=== PATIENT | male | born 1965 | race Caucasian/White ===

== ENCOUNTER 2018-08-19 11:27 | Emergency (ER) | payer MEDICARE, OTHER ==
[~2018-08-19] VITALS: Ht 188 cm; Wt 108.9 kg
[~2018-08-19 11:27] MED LIST: ASP325T PO; ASP325TEC PO; ASPI-983 PO; ATOR80TA PO; ATOR80TA2 PO; ATOR80TA76 PO; ENAL2.5T PO; ENLP2.5T PO; IBUP-1773 PO; METO-333 PO; MULT-974 PO; OMEP20CA12 PO; OMEP20TA7 PO; OMG1KC PO; PNT40TEC PO; PRAS10TA6 PO; PROM25TA14 PO; RANEXA 500MG PO; RANO10003 PO; [UNRECOGNIZED DRUG - CODE] PO
[2018-08-19] MEDS ORDERED: KETOROLAC 30 MG/ML VIAL IM ONE (11:45)
[2018-08-19] MEDS ORDERED: TRAM-42 PO (12:16)
[2018-08-19] MEDS ORDERED: PRD20T PO ×2 (12:16→12:22)
--- NOTE | 2018-08-19 12:17 | ED Back Pain ---
General Chief Complaint: Lower Extremity Stated Complaint: RIGHT LEG SWELLING Nursing Triage Note: TO ED C/O PAIN IN R LEG FOR 10DAYS AFTER WAKING UP IN CHAIR C/O L HURTING FROM R HIP TO FOOT. WAS SEEN AT [facility] WALK IN URGENT CARE AND GIVEN FLEXARIL. Nursing Sepsis Screen: No Definite Risk Source of Information: Patient Exam Limitations: No Limitations History of Present Illness Date Seen by Provider: Aug 19, 2018 Time Seen by Provider: 11:33 Initial Comments This 53-year-old gentleman presents to emergency room with complaints of pain in his right lower back radiating into the buttocks and all the way down to his foot. He has a history of lower back problems and has seen Dr. Ordoñez ( neurosurgeon) in the past. He has been taking [id number] medications and Flexeril without sufficient relief. He does not complain of any bowel or bladder dysfunction. He does not have significant weakness in the legs. He is able to ambulate into the ER on his own power. He denies any injury. He states symptoms started after he was sitting in a chair in no way that he was putting pressure on his ankle. Patient secondarily complains of cloudy urine. Allergies and Home Medications Allergies Coded Allergies: propoxyphene (Verified Allergy, Severe, NAUSEA, 03/31/14) Pt has nausea and disorientation when taking Home Medications Aspirin 81 Mg Tablet.dr, 81 MG PO DAILY, (Reported) Atorvastatin Calcium 80 Mg Tablet, 80 MG PO HS, (Reported) Enalapril Maleate 2.5 Mg Tablet, 2.5 MG PO DAILY, (Reported) Glu/Edgar-MSM#1/D3/C/Mn/Roger/Bor 1 Each Tablet, 1 TAB PO DAILY, (Reported) Metoprolol Tartrate 25 Mg Tablet, 12.5 MG PO BID, (Reported) Multivitamin 1 Each Tablet, 1 TAB PO DAILY, (Reported) [place] 3 Polyunsat Fatty Acids 1,000 Mg Cap, 1,000 MG PO DAILY, (Reported) Omeprazole 20 Mg Capsule.dr, 20 MG PO DAILY, (Reported) Prasugrel HCl 10 Mg Tablet, 10 MG PO DAILY, (Reported) Prednisone 20 Mg Tab, 1 TAB PO DAILY Prescribed by: PAUL TERRY on 08/19/18 1216 Promethazine HCl 25 Mg Tablet, 25 MG PO Q4-6 PRN for NAUSEA, (Reported) Ranolazine 1,000 Mg Tab.er.12h, 1,000 MG PO BID, (Reported) Tramadol HCl 50 Mg Tablet, 50 MG PO Q6H PRN for PAIN-MODERATE TO SEVERE Prescribed by: PAUL TERRY on 08/19/18 1216 Patient Home Medication List Home Medication List Reviewed: Yes Review of Systems Constitutional: no symptoms reported EENTM: no symptoms reported Respiratory: no symptoms reported Cardiovascular: no symptoms reported Gastrointestinal: no symptoms reported Genitourinary: no symptoms reported Musculoskeletal: see HPI Skin: no symptoms reported Psychiatric/Neurological: See HPI Past Ytvokea-Wkduqe-Wnnikw Hx Past Med/Social Hx: Reviewed and Corrections made Patient Social History Alcohol Use: Occasionally Uses Alcohol Beverage of Choice: Rum Recreational Drug Use: No Smoking Status: Never a Smoker Recent Foreign Travel: No Contact w/Someone Who Travel: No Recent Infectious Disease Expo: No Recent Hopitalizations: No Immunizations Up To Date Tetanus Booster (TDap): Less than 5yrs PED Vaccines UTD: Yes Seasonal Allergies Seasonal Allergies: No Past Medical History Surgeries: Yes Coronary Stent Respiratory: Yes Pneumonia, COPD Cardiac: Yes (CHF) Coronary Artery Disease, Heart Attack Neurological: No Reproductive Disorders: No Sexually Transmitted Disease: No HIV/AIDS: No Gastrointestinal: Yes Chronic Constipation Musculoskeletal: Yes (left meniscus tear, cervical spine disease) Degenerate Disk Disease, Chronic Back Pain Endocrine: No HEENT: No Cancer: No Psychosocial: Yes Sleep Difficulties, Anxiety, Depression Integumentary: No Blood Disorders: No Adverse Reaction/Blood Tranf: No Family Medical History Reviewed Nursing Family Hx Cancer Physical Exam Vital Signs Vital Signs - First Documented 08/19/18 11:31 Temp 97.3 Pulse 84 Resp 18 B/P (MAP) 134/84 (101) Pulse Ox 100 O2 Delivery Room Air Capillary Refill : Less Than 3 Seconds Height, Weight, BMI Height: 6'2.00" Weight: 240lbs. 9.0oz. 108.126618cu; BMI Method:Stated General Appearance: WD/WN, Mild Distress HEENT: PERRL/EOMI, Normal ENT Inspection Neck: Normal Inspection Respiratory: Normal Breath Sounds, No Respiratory Distress Back: Vertebral Tenderness, Other (tenderness in the musculature to the right of the lower lumbar spine) Extremity: Other (tenderness in the muscles of the right buttock. No edema or pain in the foot or ankle. Normal pedal pulses. Normal sensation, muscle and tendon function in the lower leg and foot. Tenderness to light touch in the lateral knee area per patient report.) Neurologic/Psychiatric: Alert, Oriented x3, No Motor/Sensory Deficits, Normal Mood/Affect, pulling unit floorhand II-XII Norm as Tested Skin: Normal Color, Warm/Dry Progress/Results/Core Measures Results/Orders My Orders Orders - PAUL CHENG MD Ketorolac Injection (Toradol Injection) (08/19/18 11:45) Medications Given in ED Current Medications Medications Dose Ordered Sig/Darrel Route Start Time Stop Time Status Last Admin Dose Admin Ketorolac Tromethamine 30 mg ONCE ONCE IM 08/19/18 11:45 08/19/18 11:46 DC 08/19/18 11:50 30 MG Vital Signs/I&O 08/19/18 11:31 Temp 97.3 Pulse 84 Resp 18 B/P (MAP) 134/84 (101) Pulse Ox 100 O2 Delivery Room Air Blood Pressure Mean: 101 Progress Progress Note : Progress Note Patient received a Toradol injection with some improvement. See discharge instructions. Patient had just urinated prior to being roomed. He cannot produce a urine specimen for us to evaluate. Follow-up in the outpatient setting for evaluation of his urine was recommended. Departure Impression Primary Impression: Pain of back and right lower extremity Additional Impression: Cloudy urine Disposition: 01 HOME, SELF-CARE Condition: Improved Departure-Patient Inst. Decision time for Depature: 12:13 Referrals: DELMY LENNON MD (PCP/Family) Primary Care Physician Patient Instructions: Low Back Pain (DC), Radiculopathy Add. Discharge Instructions: Follow-up with your primary care provider and/or your neurosurgeon as soon as possible. For pain you may take ibuprofen up to 600 mg every 6 hours as needed. Ibuprofen should not be used for long-term treatment of pain. You may add Tylenol (acetaminophen) up to 1000 mg every 6 hours as needed for additional pain relief. For more severe pain that is not controlled by [id number] medications, add Ultram (tramadol) as prescribed. Drink plenty of water. Gentle heat to lower back may help alleviate muscle tension. You may continue using Flexeril as previously prescribed. Return to care if you have worsening of symptoms, especially if you have bowel or bladder dysfunction or weakness of the lower extremities. Follow-up with your primary care provider regarding workup for your cloudy urine. All discharge instructions reviewed with patient and/or family. Voiced understanding. Scripts Prednisone (Prednisone) 20 Mg Tab 1 TAB PO DAILY, #4 TAB Prov: PAUL CHENG MD 08/19/18 Tramadol HCl (Ultram) 50 Mg Tablet 50 MG PO Q6H PRN for PAIN-MODERATE TO SEVERE, #20 TAB Prov: PAUL CHENG MD 08/19/18 Copy Copies To 1: DELMY LENNON MD, JOSHUA T MD Aug 19, 2018 12:17
[2018-08-19 12:27] VITALS: BP 134/84
== END 2018-08-19 12:27 | disposition home or self-care (01) ==
LOC: EDUNIT# 11:27 → ER 11:29
DX: M54.16 Radiculopathy, lumbar region (principal); M79.604 Pain in right leg; R82.90 Unspecified abnormal findings in urine; J44.9 Chronic obstructive pulmonary disease, unspecified; I50.9 Heart failure, unspecified; I25.10 Atherosclerotic heart disease of native coronary artery without angina pectoris; F41.9 Anxiety disorder, unspecified; F32.9 Major depressive disorder, single episode, unspecified; Z87.19 Personal history of other diseases of the digestive system; Z88.8 Allergy status to other drugs, medicaments and biological substances; Z79.82 Long term (current) use of aspirin; Z79.52 Long term (current) use of systemic steroids; Z95.5 Presence of coronary angioplasty implant and graft; Z87.01 Personal history of pneumonia (recurrent)
CPT/HCPCS: 96372; 99284

== ENCOUNTER 2018-08-21 20:29 | Emergency (ER) | payer MEDICARE ==
[~2018-08-21] VITALS: Ht 170.2 cm; Wt 90.7 kg
[~2018-08-21 20:29] MED LIST changes: +PRD20T PO; +TRAM-42 PO
[2018-08-21] MEDS ORDERED: morphine INJ 10 MG/ML 1ML (SYR OR VIAL) IVP STA (20:36)
[2018-08-21] MEDS ORDERED: KETOROLAC 30 MG/ML VIAL IVP STA (20:36)
[2018-08-21 20:47] LABS: BILIRUBIN,URINE NEGATIVE (NEGATIVE); CLARITY,URINE CLEAR; COLOR,URINE YELLOW; GLUCOSE, URINE (UA) NEGATIVE (NEGATIVE); KETONES,URINE NEGATIVE (NEGATIVE); LEUKOCYTE ESTERASE ,URINE NEGATIVE (NEGATIVE); NITRITE,URINE NEGATIVE (NEGATIVE); PH,URINE 7 (5-9); PROTEIN,URINE NEGATIVE (NEGATIVE); UROBILINOGEN,URINE NORMAL (NORMAL)
--- NOTE | 2018-08-21 20:57 | ED Back Pain ---
General Chief Complaint: Back Problems Stated Complaint: BACK PAIN Source of Information: Patient, EMS Exam Limitations: No Limitations History of Present Illness Date Seen by Provider: Aug 21, 2018 Time Seen by Provider: 20:31 Initial Comments Here with acute worsening of his back pain to the right side today. Seen a few days ago for the same and given a shot of something which helped. He was doing better this morning and was up standing and working a little bit when the pain started getting worse. It became too intense to even stand due to radiating pain from the right low back down over the right hip to the right lower leg. Denies numbness or tingling. Hurts to stand or move. He is able to roll. Denies bowel or bladder incontinence. Timing/Duration: 3-4 Days Severity: Moderate Pain/Injury Location: Back Radiation: Buttocks, Lower Legs, Upper Legs Method of Injury: Unknown Modifying Factors: Improves With Immobilization; Worse With Movement; Improves With Pain Medication Associated Symptoms: muscle spasms; No fever, No weakness, No numbness in legs/ feet, No tingling in legs/feet, No sensory/motor loss; lower back pain; No loss of bladder control, No loss of bowel control Allergies and Home Medications Allergies Coded Allergies: propoxyphene (Verified Allergy, Severe, NAUSEA, 03/31/14) Pt has nausea and disorientation when taking Home Medications Aspirin 81 Mg Tablet.dr, 81 MG PO DAILY, (Reported) Atorvastatin Calcium 80 Mg Tablet, 80 MG PO HS, (Reported) Enalapril Maleate 2.5 Mg Tablet, 2.5 MG PO DAILY, (Reported) Glu/Edgar-MSM#1/D3/C/Mn/Roger/Bor 1 Each Tablet, 1 TAB PO DAILY, (Reported) Metoprolol Tartrate 25 Mg Tablet, 12.5 MG PO BID, (Reported) Multivitamin 1 Each Tablet, 1 TAB PO DAILY, (Reported) [place] 3 Polyunsat Fatty Acids 1,000 Mg Cap, 1,000 MG PO DAILY, (Reported) Omeprazole 20 Mg Capsule.dr, 20 MG PO DAILY, (Reported) Prasugrel HCl 10 Mg Tablet, 10 MG PO DAILY, (Reported) Prednisone 20 Mg Tab, 1 TAB PO DAILY Prescribed by: PAUL TERRY on 08/19/18 1222 Promethazine HCl 25 Mg Tablet, 25 MG PO Q4-6 PRN for NAUSEA, (Reported) Ranolazine 1,000 Mg Tab.er.12h, 1,000 MG PO BID, (Reported) Tramadol HCl 50 Mg Tablet, 50 MG PO Q6H PRN for PAIN-MODERATE TO SEVERE Prescribed by: PAUL TERRY on 08/19/18 1216 Patient Home Medication List Home Medication List Reviewed: Yes Review of Systems Constitutional: see HPI; No chills, No fever Respiratory: no symptoms reported Cardiovascular: no symptoms reported Gastrointestinal: no symptoms reported Genitourinary: no symptoms reported Musculoskeletal: see HPI, back pain Psychiatric/Neurological: See HPI Past Dfoktzy-Brveia-Rzdmar Hx Past Med/Social Hx: Reviewed Nursing Past Med/Soc Hx Patient Social History Alcohol Use: Occasionally Uses Alcohol Beverage of Choice: Rum Recreational Drug Use: No Smoking Status: Never a Smoker Recent Foreign Travel: No Contact w/Someone Who Travel: No Recent Hopitalizations: No Immunizations Up To Date Tetanus Booster (TDap): Less than 5yrs PED Vaccines UTD: Yes Seasonal Allergies Seasonal Allergies: No Past Medical History Surgeries: Yes Coronary Stent Respiratory: Yes Pneumonia, COPD Cardiac: Yes (CHF) Coronary Artery Disease, Heart Attack Neurological: No Reproductive Disorders: No Sexually Transmitted Disease: No HIV/AIDS: No Gastrointestinal: Yes Chronic Constipation Musculoskeletal: Yes (left meniscus tear, cervical spine disease) Degenerate Disk Disease, Chronic Back Pain Endocrine: No HEENT: No Cancer: No Psychosocial: Yes Sleep Difficulties, Anxiety, Depression Integumentary: No Blood Disorders: No Adverse Reaction/Blood Tranf: No Family Medical History Reviewed Nursing Family Hx Cancer Physical Exam Vital Signs Vital Signs - First Documented 08/21/18 21:46 Temp 98.2 Pulse 69 Resp 18 B/P (MAP) 100/69 (79) Pulse Ox 95 Capillary Refill : Height, Weight, BMI Height: 6'2.00" Weight: 240lbs. 9.0oz. 108.734056rb; BMI Method:Stated General Appearance: WD/WN, Mild Distress HEENT: PERRL/EOMI, Pharynx Normal Neck: Normal Inspection, Non Tender, Supple Cardiovascular: Regular Rate, Rhythm, No Murmur Respiratory: Lungs Clear, Normal Breath Sounds Back: Decreased Range of Motion, Muscle Spasm; No Vertebral Tenderness (right low back); Other (tender over the right upper buttock and down the right leg) Extremity: No Pedal Edema, Pelvis Stable; No Swelling Neurologic/Psychiatric: Alert, Oriented x3, No Motor/Sensory Deficits Skin: Normal Color, Warm/Dry Progress/Results/Core Measures Results/Orders Lab Results Laboratory Tests Test 08/21/18 20:39 08/21/18 21:23 Range/Units Urine Color YELLOW Urine Clarity CLEAR Urine pH 7 5-9 Urine Specific [place] 1.010 L 1.016-1.022 Urine Protein NEGATIVE NEGATIVE Urine Glucose (UA) NEGATIVE NEGATIVE Urine Ketones NEGATIVE NEGATIVE Urine Nitrite NEGATIVE NEGATIVE Urine Bilirubin NEGATIVE NEGATIVE Urine Urobilinogen NORMAL NORMAL MG/DL Urine Leukocyte Esterase NEGATIVE NEGATIVE Urine RBC (Auto) NEGATIVE NEGATIVE Urine RBC NONE /HPF Urine WBC NONE /HPF Urine Squamous Epithelial Cells RARE /HPF Urine Crystals NONE /LPF Urine Bacteria NONE /HPF Urine Casts NONE /LPF Urine Mucus NEGATIVE /LPF Urine Culture Indicated NO White Blood Count 10.9 4.3-11.0 10^3/uL Red Blood Count 4.67 4.35-5.85 10^6/uL Hemoglobin 14.8 13.3-17.7 G/DL Hematocrit 41 40-54 % Mean Corpuscular Volume 88 80-99 FL Mean Corpuscular Hemoglobin 32 25-34 PG Mean Corpuscular Hemoglobin Concent 36 32-36 G/DL Red Cell Distribution Width 13.3 10.0-14.5 % Platelet Count 217 130-400 10^3/uL Mean Platelet Volume 10.2 7.4-10.4 FL Neutrophils (%) (Auto) 74 42-75 % Lymphocytes (%) (Auto) 18 12-44 % Monocytes (%) (Auto) 7 0-12 % Eosinophils (%) (Auto) 1 0-10 % Basophils (%) (Auto) 0 0-10 % Neutrophils # (Auto) 8.0 H 1.8-7.8 X 10^3 Lymphocytes # (Auto) 2.0 1.0-4.0 X 10^3 Monocytes # (Auto) 0.8 0.0-1.0 X 10^3 Eosinophils # (Auto) 0.1 0.0-0.3 10^3/uL Basophils # (Auto) 0.0 0.0-0.1 10^3/uL Sodium Level 138 135-145 MMOL/L Potassium Level 4.0 3.6-5.0 MMOL/L Chloride Level 107 98-107 MMOL/L Carbon Dioxide Level 19 L 21-32 MMOL/L Anion Gap 12 5-14 MMOL/L Blood Urea Nitrogen 14 7-18 MG/DL Creatinine 1.03 0.60-1.30 MG/DL Estimat Glomerular Filtration Rate > 60 BUN/Creatinine Ratio 14 Glucose Level 107 H 70-105 MG/DL Calcium Level 9.5 8.5-10.1 MG/DL Corrected Calcium 9.3 8.5-10.1 MG/DL Total Bilirubin 1.5 H 0.1-1.0 MG/DL Aspartate Amino Transf (AST/SGOT) 24 5-34 U/L Alanine Aminotransferase (ALT/SGPT) 39 0-55 U/L Alkaline Phosphatase 60 40-136 U/L C-Reactive Protein High Sensitivity 0.04 0.00-0.50 MG/DL Total Protein 6.9 6.4-8.2 GM/DL Albumin 4.3 3.2-4.5 GM/DL My Orders Orders - ELDA ALCOCER MD Ct Lumbar Spine Wo (08/21/18 20:36) Cbc With Automated Diff (08/21/18 20:36) Comprehensive Metabolic Panel (08/21/18 20:36) Hs C Reactive Protein (08/21/18 20:36) Ua Culture If Indicated (08/21/18 20:36) Ketorolac Injection (Toradol Injection) (08/21/18 20:36) Morphine Injection (Morphine Injection (08/21/18 20:36) Saline Lock/Iv-Start (08/21/18 20:36) Prednisone Tablet (Deltasone Tablet) (08/21/18 22:15) Rx-Hydrocodone/Apap 5-325 Mg (Rx-Vicodin (08/21/18 22:15) Vital Signs/I&O 08/21/18 21:46 Temp 98.2 Pulse 69 Resp 18 B/P (MAP) 100/69 (79) Pulse Ox 95 Progress Progress Note : Progress Note Seen and evaluated. We will check basic labs as well as CT of the lumbar spine. Toradol 30 mg IV and morphine 8 mg IV ordered. Monitor patient. Pain improved. 2210: Prednisone 60 mg by mouth. We will continue his outpatient has burst. Does have advancing degenerative disease and will need to follow-up with orthopedics. He does have appointment with Dr. Hawley tomorrow. I'll send a copy of the chart to the clinic. Discharged home with return precautions. Patient verbalize understanding instructions and agreement with plan. Diagnostic Imaging Diagonstic Imaging: CT Plain Films/CT/US/NM/MRI: other Comments NAME: ELDA HERNANDES [facility] REC#: [id number] PT STATUS: REG ER : 1965 PHYSICIAN: ELDA ALCOCER MD ADMIT DATE: 08/21/18/ER Signed Date of Exam: 08/21/18 CT LUMBAR SPINE WO PROCEDURE: CT lumbar spine without contrast. TECHNIQUE: Multiple contiguous axial images were obtained through the lumbar spine without the use of intravenous contrast. Sagittal and coronal reformations were then performed. INDICATION: Severe back pain for 7 days. Right leg numbness. There is normal height and alignment of the lumbar vertebral bodies. The L1-2 level shows no significant abnormality. At L2-3, there is disc space narrowing and bulging of the disc with spondylosis causing right lateral recess and foraminal encroachment. At L3-4, there is disc space narrowing and diffuse bulging of the disc with degenerated facets resulting in a mild central canal stenosis. At L4-5, there is disc space narrowing with bulging of the disc and degenerated facets resulting in a moderately severe spinal canal stenosis. At L5-S1, there is bulging of the disc with degenerated facets resulting in a moderate spinal canal stenosis. There is no mass evident. There is no acute bony abnormality. IMPRESSION: There is diffuse degenerative disc and facet disease resulting in multilevel stenosis. This has shown progression since an MRI from 11/18/2015. No acute abnormality is evident. Dictated by: Dictated on workstation # [id number] Dict: 08/21/182121 Trans: 08/21/182130 Interpreted by: CARLOS VARGHESE MD Electronically signed by: CARLOS VARGHESE MD 08/21/182130 Departure Impression Primary Impression: Lumbar radiculopathy Disposition: HOME, SELF-CARE Condition: Improved Departure-Patient Inst. Decision time for Depature: 22:17 Referrals: SHAILESH SAHA DAVID F MD (PCP/Family) Primary Care Physician VALARIE ELLISON MD Patient Instructions: Low Back Pain (DC), Radiculopathy (DC) Add. Discharge Instructions: All discharge instructions reviewed with patient and/or family. Voiced understanding. Follow up with your doctor tomorrow. You should follow-up with orthopedist of your choice for further evaluation of your back. Take medications as directed. Return for worse pain, weakness, numbness between her legs, difficulty with walking or going to the bathroom or other concerns as needed. Scripts Prednisone (Prednisone) 20 Mg Tab 40 MG PO DAILY, #12 TAB 0 Refills Prov: ELDA ALCOCER MD 08/21/18 Hydrocodone Bit/Acetaminophen (Hydrocodone/Acetaminophen 5/325mg Tablet) 1 Tab Tab 1-2 EACH PO Q6H PRN for PAIN-MODERATE MDD 10, #15 TAB 0 Refills Prov: ELDA ALCOCER MD 08/21/18 Copy Copies To 1: DELMY LENNON MD, TIMOTHY D MD Aug 21, 2018 20:56
[2018-08-21 20:58] LABS: SQUAMOUS EPITHELIAL CELL,UR RARE /HPF
--- NOTE | 2018-08-21 21:29 | Diagnostic Imaging Report ---
PROCEDURE: CT lumbar spine without contrast. TECHNIQUE: Multiple contiguous axial images were obtained through the lumbar spine without the use of intravenous contrast. Sagittal and coronal reformations were then performed. INDICATION: Severe back pain for 7 days. Right leg numbness. There is normal height and alignment of the lumbar vertebral bodies. The L1-2 level shows no significant abnormality. At L2-3, there is disc space narrowing and bulging of the disc with spondylosis causing right lateral recess and foraminal encroachment. At L3-4, there is disc space narrowing and diffuse bulging of the disc with degenerated facets resulting in a mild central canal stenosis. At L4-5, there is disc space narrowing with bulging of the disc and degenerated facets resulting in a moderately severe spinal canal stenosis. At L5-S1, there is bulging of the disc with degenerated facets resulting in a moderate spinal canal stenosis. There is no mass evident. There is no acute bony abnormality. IMPRESSION: There is diffuse degenerative disc and facet disease resulting in multilevel stenosis. This has shown progression since an MRI from 11/18/2015. No acute abnormality is evident. Dictated by: Dictated on workstation # [id number]
[2018-08-21 21:31] LABS: BASOPHILS % (AUTO) 0 % (0-10); EOSINOPHILS # (AUTO) 0.1 10^3/uL (0.0-0.3); EOSINOPHILS % (AUTO) 1 % (0-10); HEMATOCRIT 41 % (40-54); HEMOGLOBIN 14.8 G/DL (13.3-17.7); LYMPHOCYTES % (AUTO) 18 % (12-44); MEAN CORPUSCULAR HEMOGLOBIN 32 PG (25-34); MEAN CORPUSCULAR HGB CONC 36 G/DL (32-36); MEAN CORPUSCULAR VOLUME 88 FL (80-99); MEAN PLATELET VOLUME 10.2 FL (7.4-10.4); MONOCYTES # (AUTO) 0.8 X 10^3 (0.0-1.0); MONOCYTES % (AUTO) 7 % (0-12); NEUTROPHILS % (AUTO) 74 % (42-75); PLATELET COUNT 217 10^3/uL (130-400); RED BLOOD COUNT 4.67 10^6/uL (4.35-5.85); RED CELL DISTRIBUTION WIDTH 13.3 % (10.0-14.5); WHITE BLOOD COUNT 10.9 10^3/uL (4.3-11.0)
[2018-08-21 21:47] LABS: ALANINE AMINOTRANSFERASE 39 U/L (0-55); ALBUMIN 4.3 GM/DL (3.2-4.5); ALKALINE PHOSPHATASE 60 U/L (40-136); BILIRUBIN,TOTAL 1.5 MG/DL (0.1-1.0); BUN/CREATININE RATIO 14; CALCIUM 9.5 MG/DL (8.5-10.1); CARBON DIOXIDE 19 MMOL/L (21-32); CHLORIDE 107 MMOL/L (98-107); CREATININE SERUM 1.03 MG/DL (0.60-1.30); GFR ESTIMATED > 60; GLUCOSE 107 MG/DL (70-105); SODIUM 138 MMOL/L (135-145); TOTAL PROTEIN 6.9 GM/DL (6.4-8.2)
[2018-08-21] MEDS ORDERED: predniSONE 20 MG TAB PO ONE (22:15)
[2018-08-21] MEDS ORDERED: RX-HYDROCODONE/APAP 5/325 MG #4 TAB PK PO PRN (22:15)
[2018-08-21] MEDS ORDERED: ACHD5005 PO (22:18)
[2018-08-21] MEDS ORDERED: PRD20T PO (22:18)
[2018-08-21 22:34] VITALS: BP 111/66
== END 2018-08-21 22:34 | disposition home or self-care (01) ==
LOC: EDUNIT# 20:29 → ER 20:31
DX: M54.16 Radiculopathy, lumbar region (principal); J44.9 Chronic obstructive pulmonary disease, unspecified; I25.10 Atherosclerotic heart disease of native coronary artery without angina pectoris; I25.2 Old myocardial infarction; I50.9 Heart failure, unspecified; F41.9 Anxiety disorder, unspecified; F32.9 Major depressive disorder, single episode, unspecified; Z88.8 Allergy status to other drugs, medicaments and biological substances; Z79.82 Long term (current) use of aspirin; Z87.19 Personal history of other diseases of the digestive system; Z79.52 Long term (current) use of systemic steroids; Z95.5 Presence of coronary angioplasty implant and graft; Z87.01 Personal history of pneumonia (recurrent)
CPT/HCPCS: 36415; 72131; 80053; 81000; 85025; 86141; 96374

== ENCOUNTER 2019-10-01 09:41 | Day surgery (SDC) | payer MEDICARE ==
[2019-10-01] VITALS (9 sets, daily range): BP systolic 108–136; BP diastolic 68–89
[~2019-10-01] VITALS: Ht 185 cm; Wt 118.5 kg
[~2019-10-01 09:41] MED LIST changes: +ACET-77 PO; +ACHD5005 PO; +ATOR20TA66 PO; +GLUC1TAB29 PO; +OMEG-160 PO; -OMEP20CA12 PO; +OMEP20CA13 PO; +TURM500C7 PO
[2019-10-01 10:06] LABS: BASOPHILS % (AUTO) 0 % (0-10); EOSINOPHILS # (AUTO) 0.1 10^3/uL (0.0-0.3); EOSINOPHILS % (AUTO) 1 % (0-10); HEMATOCRIT 45 % (40-54); HEMOGLOBIN 15.7 G/DL (13.3-17.7); LYMPHOCYTES # (AUTO) 2.4 X 10^3 (1.0-4.0); LYMPHOCYTES % (AUTO) 32 % (12-44); MEAN CORPUSCULAR HEMOGLOBIN 30 PG (25-34); MEAN CORPUSCULAR HGB CONC 35 G/DL (32-36); MEAN CORPUSCULAR VOLUME 86 FL (80-99); MEAN PLATELET VOLUME 10.1 FL (7.4-10.4); MONOCYTES # (AUTO) 0.7 X 10^3 (0.0-1.0); MONOCYTES % (AUTO) 9 % (0-12); NEUTROPHILS # (AUTO) 4.4 X 10^3 (1.8-7.8); NEUTROPHILS % (AUTO) 57 % (42-75); PLATELET COUNT 216 10^3/uL (130-400); RED CELL DISTRIBUTION WIDTH 13.8 % (10.0-14.5); WHITE BLOOD COUNT 7.6 10^3/uL (4.3-11.0)
--- NOTE | 2019-10-01 10:11 | Diagnostic Imaging Report ---
INDICATION: Chest pain. COMPARISON: 09/30/2019. FINDINGS: The heart size and configuration is normal. The lungs are clear. No vascular congestion, edema, pneumonia, effusion or pneumothorax. IMPRESSION: Stable unremarkable chest Dictated by: Dictated on workstation # [id number]
[2019-10-01 10:21] LABS: PROTHROMBIN TIME PATIENT 13.1 SEC (12.2-14.7)
[2019-10-01] MEDS ORDERED: LIDOCAINE 1% INJ 20 ML 20 ML VIAL ONE (10:29)
[2019-10-01] MEDS ORDERED: HEParin (CATH LAB) 2,000 ML IV ONE (10:29)
[2019-10-01 10:30] LABS: ALANINE AMINOTRANSFERASE 40 U/L (0-55); ALBUMIN 4.6 GM/DL (3.2-4.5); ALKALINE PHOSPHATASE 62 U/L (40-136); BILIRUBIN,TOTAL 2.1 MG/DL (0.1-1.0); BUN/CREATININE RATIO 13; CALCIUM 9.5 MG/DL (8.5-10.1); CARBON DIOXIDE 21 MMOL/L (21-32); CHLORIDE 106 MMOL/L (98-107); CREATININE SERUM 1.29 MG/DL (0.60-1.30); GFR ESTIMATED 58; GLUCOSE 123 MG/DL (70-105); MAGNESIUM 1.9 MG/DL (1.6-2.4); POTASSIUM 4.3 MMOL/L (3.6-5.0); SODIUM 137 MMOL/L (135-145); TOTAL PROTEIN 7.5 GM/DL (6.4-8.2)
--- NOTE | 2019-10-01 10:40 | NUR ---
DR PLUMMER HERE TO SEE PT
--- NOTE | 2019-10-01 10:46 | NUR ---
CONSENT FOR HEART CATH SIGNED
[2019-10-01] MEDS ORDERED: MIDAZOLAM 5 MG/5 ML (VERSED) VIAL ONE (10:57)
[2019-10-01] MEDS ORDERED: NS IV 1000 ML 1,000 ML ONE ×2 (10:57→12:33)
[2019-10-01] MEDS ORDERED: fentaNYL INJECTION 100 MCG/2 ML AMP ONE (10:57)
--- NOTE | 2019-10-01 11:05 | ED Chest Pain ---
General Chief Complaint: Chest Pain Stated Complaint: CHEST PAIN Nursing Triage Note: PT AMBULATED TO ED STATES DR ESPARZA TOLD PT TO CHECK BACK INTO ED FOR HEART CATH TODAY, PT LEFT HOSP AMA LAST PM AND WAS SUPPOSE TO HAVE HEART CATH TODAY. PT RATES C/P 2/10 Nursing Sepsis Screen: No Definite Risk Source: patient, old records Exam Limitations: no limitations History of Present Illness Date Seen by Provider: Oct 01, 2019 Time Seen by Provider: 09:50 Initial Comments This 54-year-old man presents to the emergency room with chest pain. He was actually admitted yesterday for chest pain with anticipated cardiac catheter today. He left AGAINST MEDICAL ADVICE to care for his elderly mother. He returns today hoping to proceed with cardiac evaluation. Dr. Esparza was contacted and requested that the chest pain workup be performed again and that he be admitted for the catheter procedure. Patient states he actually feels b anya than he did yesterday but still has some lingering chest heaviness. He took his aspirin and Ranexa this morning but has otherwise been nothing by mouth since midnight. See documentation from yesterday for more details. Allergies and Home Medications Allergies Coded Allergies: propoxyphene (Verified Allergy, Severe, NAUSEA, 03/31/14) Pt has nausea and disorientation when taking Home Medications Acetaminophen 500 Mg Tablet, 500 MG PO Q6H PRN for PAIN-MILD (1-4), (Reported) Aspirin 81 Mg Tablet.dr, 81 MG PO DAILY, (Reported) Atorvastatin Calcium 20 Mg Tablet, 20 MG PO HS, (Reported) Gluc/Edgar-MSM#1/Vit C/Aki/Bor 1 Each Tablet, 1 EACH PO DAILY, (Reported) [place]-3/Dha/Epa/Fish Oil 1 Each Capsule, 1 EACH PO DAILY, (Reported) Ranolazine 1,000 Mg Tab.er.12h, 1,000 MG PO BID, (Reported) Turmeric/Turmeric Root Extract 1 Each Capsule, 1 EACH PO DAILY, (Reported) Patient Home Medication List Home Medication List Reviewed: Yes Review of Systems Review of Systems Constitutional: no symptoms reported EENTM: No Symptoms Reported Respiratory: No Symptoms Reported Cardiovascular: See HPI Gastrointestinal: No Symptoms Reported Genitourinary: No Symptoms Reported Musculoskeletal: no symptoms reported Skin: no symptoms reported Psychiatric/Neurological: No Symptoms Reported Endocrine: No Symptoms Reported Past Pplxpup-Mvfkjh-Shfoak Hx Past Med/Social Hx: Reviewed Nursing Past Med/Soc Hx Patient Social History Alcohol Use: Denies Use Number of Drinks Today: DD Alcohol Beverage of Choice: Rum Recreational Drug Use: No Smoking Status: Current Everyday Smoker Type Used: Cigarettes Recent Foreign Travel: No Contact w/Someone Who Travel: No Recent Infectious Disease Expo: No Recent Hopitalizations: Yes (LAST PM) Physical Abuse: No Sexual Abuse: No Immunizations Up To Date Tetanus Booster (TDap): Less than 5yrs PED Vaccines UTD: Yes Seasonal Allergies Seasonal Allergies: No Past Medical History Surgeries: Yes Coronary Stent Respiratory: Yes Pneumonia, COPD Cardiac: Yes (CHF) Coronary Artery Disease, Heart Attack Neurological: No Reproductive Disorders: No Sexually Transmitted Disease: No HIV/AIDS: No Gastrointestinal: Yes Chronic Constipation Musculoskeletal: Yes (left meniscus tear, cervical spine disease) Degenerate Disk Disease, Chronic Back Pain Endocrine: No HEENT: No Cancer: No Psychosocial: Yes Sleep Difficulties, Anxiety, Depression Integumentary: No Blood Disorders: No Adverse Reaction/Blood Tranf: No Family Medical History Cancer Physical Exam Vital Signs Vital Signs - First Documented 10/01/19 09:45 Temp 36.4 Pulse 66 Resp 18 B/P (MAP) 110/81 (91) Pulse Ox 97 O2 Delivery Room Air Capillary Refill : Less Than 3 Seconds Height, Weight, BMI Height: 5'7.00" Weight: 200lbs. 9.0oz. 90.617508ht; 33.00 BMI Method:Estimated General Appearance: No Apparent Distress HEENT: Normal ENT Inspection Neck: Normal Inspection Respiratory: Chest Non Tender, Lungs Clear, Normal Breath Sounds, No Accessory Muscle Use, No Respiratory Distress Cardiovascular: Regular Rate, Rhythm, No Edema, No Murmur Extremity: Normal Inspection, No Pedal Edema Neurologic/Psychiatric: Alert, Oriented x3, No Motor/Sensory Deficits, Normal Mood/Affect Skin: Normal Color, Warm/Dry Progress/Results/Core Measures Results/Orders Lab Results Laboratory Tests Test 10/01/19 09:55 Range/Units White Blood Count 7.6 4.3-11.0 10^3/uL Red Blood Count 5.16 4.35-5.85 10^6/uL Hemoglobin 15.7 13.3-17.7 G/DL Hematocrit 45 40-54 % Mean Corpuscular Volume 86 80-99 FL Mean Corpuscular Hemoglobin 30 25-34 PG Mean Corpuscular Hemoglobin Concent 35 32-36 G/DL Red Cell Distribution Width 13.8 10.0-14.5 % Platelet Count 216 130-400 10^3/uL Mean Platelet Volume 10.1 7.4-10.4 FL Neutrophils (%) (Auto) 57 42-75 % Lymphocytes (%) (Auto) 32 12-44 % Monocytes (%) (Auto) 9 0-12 % Eosinophils (%) (Auto) 1 0-10 % Basophils (%) (Auto) 0 0-10 % Neutrophils # (Auto) 4.4 1.8-7.8 X 10^3 Lymphocytes # (Auto) 2.4 1.0-4.0 X 10^3 Monocytes # (Auto) 0.7 0.0-1.0 X 10^3 Eosinophils # (Auto) 0.1 0.0-0.3 10^3/uL Basophils # (Auto) 0.0 0.0-0.1 10^3/uL Prothrombin Time 13.1 12.2-14.7 SEC INR Comment 1.0 0.8-1.4 Activated Partial Thromboplast Time 29 24-35 SEC Sodium Level 137 135-145 MMOL/L Potassium Level 4.3 3.6-5.0 MMOL/L Chloride Level 106 98-107 MMOL/L Carbon Dioxide Level 21 21-32 MMOL/L Anion Gap 10 5-14 MMOL/L Blood Urea Nitrogen 17 7-18 MG/DL Creatinine 1.29 0.60-1.30 MG/DL Estimat Glomerular Filtration Rate 58 BUN/Creatinine Ratio 13 Glucose Level 123 H 70-105 MG/DL Calcium Level 9.5 8.5-10.1 MG/DL Corrected Calcium 8.5-10.1 MG/DL Magnesium Level 1.9 1.6-2.4 MG/DL Total Bilirubin 2.1 H 0.1-1.0 MG/DL Aspartate Amino Transf (AST/SGOT) 24 5-34 U/L Alanine Aminotransferase (ALT/SGPT) 40 0-55 U/L Alkaline Phosphatase 62 40-136 U/L Myoglobin 106.2 H 10.0-92.0 NG/ML Troponin I < 0.028 <0.028 NG/ML Total Protein 7.5 6.4-8.2 GM/DL Albumin 4.6 H 3.2-4.5 GM/DL My Orders Orders - PAUL CHENG MD Cbc With Automated Diff (10/01/19 09:50) Magnesium (10/01/19 09:50) Chest 1 View, Ap/Pa Only (10/01/19 09:50) Ekg Tracing (10/01/19 09:50) Comprehensive Metabolic Panel (10/01/19 09:50) Myoglobin Serum (10/01/19 09:50) Protime With Inr (10/01/19 09:50) Partial Thromboplastin Time (10/01/19 09:50) O2 (10/01/19 09:50) Monitor-Rhythm Ecg Trace Only (10/01/19 09:50) Lipid Panel (10/02/19 06:00) Ed Iv/Invasive Line Start (10/01/19 09:50) Troponin I (10/01/19 09:50) Lidocaine 1% Inj 20 Ml (Xylocaine 1% Inj (10/01/19 10:29) Heparin (Rn Telephone Triage) (Heparin (Rn Telephone Triage)) (10/01/19 10:29) Vital Signs/I&O 10/01/19 09:45 Temp 36.4 Pulse 66 Resp 18 B/P (MAP) 110/81 (91) Pulse Ox 97 O2 Delivery Room Air Blood Pressure Mean: 91 POS Initial ECG Impression Date: Oct 01, 2019 Initial ECG Impression Time: 09:52 Initial ECG Rate: 63 Initial ECG Rhythm: Normal Sinus Initial ECG Intervals: Normal Initial ECG Impression: Normal Comment Normal sinus rhythm with no ST elevation or depression. No abnormal intervals or axis deviation. Diagnostic Imaging Diagonstic Imaging: Xray Plain Films/CT/US/NM/MRI: chest Comments NAME: ELDA HERNANDES [facility] REC#: [id number] PT STATUS: REG ER : 1965 PHYSICIAN: PAUL CHENG MD ADMIT DATE: 10/01/19/ER Draft Date of Exam:10/01/19 CHEST 1 VIEW, AP/PA ONLY INDICATION: Chest pain. COMPARISON: 09/30/2019. FINDINGS: The heart size and configuration is normal. The lungs are clear. No vascular congestion, edema, pneumonia, effusion or pneumothorax. IMPRESSION: Stable unremarkable chest Dictated on workstation # [id number] Dict: 10/01/19 1009 Trans: 10/01/19 1011 [facility] [id number] Interpreted by: ALIDA CARRENO Departure Communication (Admissions) Time/Spoke to Admitting Phy: 10:50 Dr. Tiwari Time/Spoke to Consulting Phy: 10:40 Dr. Esparza Impression Primary Impression: Chest pain Qualified Codes: R07.9 - Chest pain, unspecified Disposition: ADMITTED INPATIENT Condition: Improved Admissions Decision to Admit Reason: Admit from ER (General) Decision to Admit/Date: Oct 01, 2019 Time/Decision to Admit Time: 10:00 Departure-Patient Inst. Referrals: DELMY LENNON MD (PCP) Primary Care Physician PAUL CHENG MD Oct 01, 2019 11:05 POS
[2019-10-01] MEDS ORDERED: HEParin 1000 UNIT/ML (10ML VIAL) FOR BOLUS ONE (11:26)
[2019-10-01] MEDS ORDERED: EPTIFIBATIDE BOLUS 20 ML IV ONE (11:26)
[2019-10-01] MEDS ORDERED: EPTIFIBATIDE BOLUS 10 ML IV ONE (11:30)
[2019-10-01] MEDS ORDERED: NS IV 1000 ML 1,000 ML IV ONE (11:30)
[2019-10-01] MEDS ORDERED: CLOPIDOGREL 75 MG (PLAVIX) TABLET ONE ×2 (12:56→13:42)
[2019-10-01] MEDS ORDERED: ASPIRIN 81 MG CHEW (CHILDREN'S ASA) ONE (12:57)
[2019-10-01] MEDS ORDERED: PATIENT MAY USE OWN MEDS, ALL PO SCH (13:15)
[2019-10-01] MEDS ORDERED: ACETAMINOPHEN 325 MG TABLET PO PRN (13:15)
[2019-10-01] MEDS ORDERED: TEMAZEPAM 7.5 MG CAP (RESTORIL) PO PRN (13:15)
--- NOTE | 2019-10-01 13:16 | Consultation-Cardiology ---
HPI-Cardiology Cardiology Consultation: Date of Consultation 10/01/19 Time Seen by a Provider: 11:00 Date of Admission Attending Physician Dr Tiwari Admitting Physician Buzz Major MD Consulting Physician CHEKO PLUMMER MD, MA, FACP, FACC, FSCAI, CCDS HPI: Chief Complaint: CC: Chest discomfort HPI: Mr. Espino is a 54 year old male who was admitted yesterday from the ED with c/o anterior chest pain. He reports it started approx 4-5 days ago. He describes it as a pressure, heaviness across his chest which has been constant. He states it is mild in intensity. He feels it may be worse with rest and somewhat better with ambulation, but it has never completely gone away. He reports some SOB with the discomfort. He reports episodes of lightheadedness. He denies any palpitations, syncope, near syncope. No c/o LE swelling. He states he has been taking his Ranexa at home. He reports an epigastric hernia which is tender with palpation. He has chronic back pain. He quit smoking cigs approx 2 weeks ago. Yesterday, cardiac enzymes were negative, but given cardiac history and symptoms suggestive of unstable angina, we recommended further w/u with card cath. This was discussed in detail. He understood all issues but decided to leave against medical advice. Today, he presents with the same symptoms. Review of Systems-Cardiology Review of Systems Constitutional: No weight loss, No weight gain Eyes: No vision change Ears/Nose/Throat: No ear discharge, No nasal drainage, No recent hearing loss Respiratory: As described under HPI Cardiovascular: As described under HPI Gastrointestinal: No constipation, No diarrhea, No nausea, No vomiting Genitourinary: No dysuria, No hematuria, No urine frequency changes Musculoskeletal: No back pain, No joint pain Skin: No rash on exposed areas, No ulcerations on exposed areas Psychiatric/Neurological: No seizure, No focal weakness, No syncope Hematologic: No bleeding abnormalities XED-Tqffnx-Cedwwy Hx Patient Social History Alcohol Use: Denies Use Recreational Drug Use: No Smoking Status: Current Everyday Smoker Former smoker/When Quit: March 28, 2014 Type Used: Cigarettes Recent Foreign Travel: No Recent Infectious Disease Expo: No Hospitalization with Isolation: Denies Immunizations Up To Date Tetanus Booster (TDap): Less than 5yrs Past Medical History PMH As described under Assessment. Family Medical History Family Medical History: He does not report fam h/o early CAD or SCD Allergies and Home Medications Allergies Coded Allergies: propoxyphene (Verified Allergy, Severe, NAUSEA, 03/31/14) Pt has nausea and disorientation when taking Home Medications Acetaminophen 500 Mg Tablet, 500 MG PO Q6H PRN for PAIN-MILD (1-4), (Reported) Aspirin 81 Mg Tablet.dr, 81 MG PO DAILY, (Reported) Atorvastatin Calcium 20 Mg Tablet, 20 MG PO HS, (Reported) Gluc/Edgar-MSM#1/Vit C/Aki/Bor 1 Each Tablet, 1 EACH PO DAILY, (Reported) [place]-3/Dha/Epa/Fish Oil 1 Each Capsule, 1 EACH PO DAILY, (Reported) Ranolazine 1,000 Mg Tab.er.12h, 1,000 MG PO BID, (Reported) Turmeric/Turmeric Root Extract 1 Each Capsule, 1 EACH PO DAILY, (Reported) Patient Home Medication List Home Medication List Reviewed: Yes Physical Exam-Cardiology Physical Exam Vital Signs/I&O 10/01/19 10/01/19 09:45 10:53 Temp 36.4 Pulse 66 67 Resp 18 18 B/P (MAP) 110/81 (91) 122/89 Pulse Ox 97 99 O2 Delivery Room Air Capillary Refill : Less Than 3 Seconds Constitutional: AAO x 3, well-developed, well-nourished HEENT: EOMI, hearing is well preserved; No xanthelasmas are seen Neck: carotid pulses are 2 + bilaterally, with good upstrokes Respiratory: No accessory muscle use; lungs clear to percussion, lungs clear to auscultation Cardiovascular: regular rate-rhythm, S1 and S2, systolic murmur (faint PATRICIA at card base) Gastrointestinal: No tender; soft; No guarding, No rebound; audible bowel sounds Extremities: No clubbing, No cyanosis, No significant edema Neurologic/Psychiatric: other (moves all limbs equally) Skin: No rash on exposed areas, No ulcerations on exposed areas Data Review Labs Laboratory Tests 10/01/19 09:55: White Blood Count 7.6, Red Blood Count 5.16, Hemoglobin 15.7, Hematocrit 45, Mean Corpuscular Volume 86, Mean Corpuscular Hemoglobin 30, Mean Corpuscular Hemoglobin Concent 35, Red Cell Distribution Width 13.8, Platelet Count 216, Mean Platelet Volume 10.1, Neutrophils (%) (Auto) 57, Lymphocytes (%) (Auto) 32, Monocytes (%) (Auto) 9, Eosinophils (%) (Auto) 1, Basophils (%) (Auto) 0, Neutrophils # (Auto) 4.4, Lymphocytes # (Auto) 2.4, Monocytes # (Auto) 0.7, Eosinophils # (Auto) 0.1, Basophils # (Auto) 0.0, Prothrombin Time 13.1, INR Comment 1.0, Activated Partial Thromboplast Time 29, Sodium Level 137, Potassium Level 4.3, Chloride Level 106, Carbon Dioxide Level 21, Anion Gap 10, Blood Urea Nitrogen 17, Creatinine 1.29, Estimat Glomerular Filtration Rate 58, BUN/Creatinine Ratio 13, Glucose Level 123H, Calcium Level 9.5, Corrected Calcium , Magnesium Level 1.9, Total Bilirubin 2.1H, Aspartate Amino Transf (AST/SGOT) 24, Alanine Aminotransferase (ALT/SGPT) 40, Alkaline Phosphatase 62, Myoglobin 106.2H, Troponin I < 0.028, Total Protein 7.5, Albumin 4.6H Laboratory Tests 10/01/19 09:55 A/P-Cardiology Assessment/Admission Diagnosis Chest pain, no evidence of ac TN, unstable angina suspected WICK Coronary artery disease, status post acute myocardial infarction with ST elevation TN, underwent emergency cardiac catheterization on March 31, 2014 had Promus Premiere 2.524 mm stent to the mid LAD overlapping with another Promus Premiere 2.7524 mm stent proximally Echocardiogram by Dr. Godoy in Jul 2015 showed LVEF 40%. Mild MR and TR Hypertension, with h/o labile blood pressure Hyperlipidemia H/O of noncompliance with medication and cardiac f/u BMI approx 35 Tobaccoism, quit smoking 2 weeks ago Hyperglycemia and elevated bilirubin level of undetermined etiology - Medical Services managing Chronic back pain Discussion and Recomendations * Urgent cath. Rationale,procedure, risks, benefits, potential complications and alternatives of cath and possible PCI reviewed. He provides informend consent * Continue therapy with DAPT, statin, bb * Advised to continue to refrain from smoking cigs Clinical Quality Measures AMI/AHF: ASA po Prior to arrival: CHEKO Johnson MD FACP FAC CCDS Oct 01, 2019 13:16 POS
--- NOTE | 2019-10-01 13:20 | Cardiac Procedure Note-CS/ASA ---
Pre-Procedure Note Pre-Op Procedure Note H&P Reviewed The H&P was reviewed, patient examined and no changes noted. Date H&P Reviewed: Oct 01, 2019 Time H&P Reviewed: 11:00 Conscious Sedation Pre-Proced Time 11:00 ASA Score 3 For ASA 3 and 4: Consider anesthesia and medical clearance. Also, for patients with a history of failed moderate sedation consider anesthesia. Airway Lungs Heart ASA score ASA 1: a normal healthy patient ASA 2: a patient with a mild systemic disease (mid diabetes, controlled hypertension, obesity ASA 3: a patient with a severe systemic disease that limits activity (angina, COPD, prior Myocardial infarction) ASA 4: a patient with an incapacitating disease that is a constant threat to life (CHF, renal failure) ASA 5: a moribund patient not expected to survive 24 hrs. (ruptured aneurysm) ASA 6: a declared brain- patient whose organs are being harvested. For emergent operations, add the letter E after the classification Mallampati Classification Grade 2 Sedation Plan Analgesia, Amnesia, Plan communicated to team members, Discussed options with patient/fam, Discussed risks with patient/fam The patient is an appropriate candidate to undergo the planned procedure, sedation, and anesthesia. The patient immediately re-assessed prior to indication. CHEKO PLUMMER MD FACP FAC CCDS Oct 01, 2019 13:20 POS
[2019-10-01] MEDS: NS IV 1000 ML 1,000 ML IV SCH ×2 (13:22→22:28)
--- NOTE | 2019-10-01 13:29 | NUR ---
PATIENT STATES NOTHING HAS CHANGED WITH HIS MEDICATIONS SINCE YESTERDAY. YESTERDAY, THEY WERE DISCUSSING PRESCRIBING PLAVIX TO HIM BUT HE HAD TO LEAVE AMA AND WHEN HE CALLED HIS PHARMACY THIS MORNING THEY DID NOT HAVE A SCRIPT FOR IT. I LEFT IT OFF THE MED REC SINCE DISCHARGE WASN'T COMPLETED IT MAY NOT HAVE BEEN PRESCRIBED SO THEY CAN PRESCRIBE IT AT DISCHARGE THIS VISIT IF NEEDED.
--- NOTE | 2019-10-01 15:22 | History & Physical-Hospitalist ---
History of Present Illness HPI/Chief Complaint CC: Chest pain HPI: This is a [facility] pt who presented to the ER with chest pain after leaving against medical advice the day before. 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 Cardiology evaluated him and sent him to cardiac catheterization procedure and completed intervention so he is currently doing very well and having no chest pain. Source: patient Date Seen 10/01/19 Time Seen by a Provider: 15:20 Attending Physician Kushal Esparza MD Facp Fac Ccds PCP Buzz Major MD Referring Physician Date of Admission Home Medications & Allergies Home Medications Reviewed patient Home Medication Reconciliation performed by pharmacy medication reconciliations animal technician and/or nursing. Patients Allergies have been reviewed. Allergies Allergies Coded Allergies propoxyphene (Verified Allergy, Severe, NAUSEA, 03/31/14) Pt has nausea and disorientation when taking Past Doxumlg-Xhcbjd-Jkikkq Hx Past Med/Social Hx: Reviewed Nursing Past Med/Soc Hx, Reviewed and Corrections made Patient Social History Alcohol Use: Denies Use Number of Drinks Today: DD Alcohol Beverage of Choice: Rum Recreational Drug Use: No Smoking Status: Current Everyday Smoker Type Used: Cigarettes Recent Foreign Travel: No Contact w/other who traveled: No Recent Hopitalizations: Yes (LAST PM) Recent Infectious Disease Expo: No Immunizations Up To Date Tetanus Booster (TDap): Less than 5yrs Pediatric: Yes Seasonal Allergies Seasonal Allergies: No Past Medical History Surgeries: Coronary Stent Cardiac: Coronary Artery Disease, Heart Attack Reproductive: No Sexually Transmitted Disease: No HIV/AIDS: No Gastrointestinal: Chronic Constipation Musculoskeletal: Degenerate Disk Disease, Chronic Back Pain Psychosocial: Sleep Difficulties, Anxiety, Depression History of Blood Disorders: No Adverse Reaction to Blood [place]: No Family History Arthritis 19 MOTHER FH: CAD (coronary artery disease) 19 FATHER FH: colon cancer G8 SISTER FH: stomach cancer 19 FATHER Cancer Review of Systems Constitutional: see HPI Cardiovascular: chest pain Physical Exam Physical Exam Vital Signs Vital Signs - First Documented 10/01/19 09:45 Temp 36.4 Pulse 66 Resp 18 B/P (MAP) 110/81 (91) Pulse Ox 97 O2 Delivery Room Air Capillary Refill : Less Than 3 Seconds Height, Weight, BMI Height: 5'7.00" Weight: 200lbs. 9.0oz. 90.483380kj; 34.62 BMI Method:Estimated General Appearance: No Apparent Distress Eyes: Right Eye Normal Inspection, Right Eye PERRL HEENT: PERRL/EOMI, TMs Normal, Normal ENT Inspection, Pharynx Normal, Moist Mucous Membranes Neck: Full Range of Motion, Normal Inspection, Non Tender Respiratory: Chest Non Tender, Lungs Clear, Normal Breath Sounds, No Accessory Muscle Use, No Respiratory Distress Cardiovascular: Regular Rate, Rhythm, No Edema, No Gallop, No JVD, No Murmur, Normal Peripheral Pulses Gastrointestinal: Normal Bowel Sounds, No Organomegaly, No Pulsatile Mass, Non Tender, Soft Back: Normal Inspection, No CVA Tenderness, No Vertebral Tenderness Extremity: Normal Capillary Refill, Normal Inspection, Normal Range of Motion, Non Tender, No Calf Tenderness, No Pedal Edema Neurologic/Psychiatric: Alert, Oriented x3, No Motor/Sensory Deficits, Normal Mood/Affect Skin: Normal Color, Warm/Dry Lymphatic: No Adenopathy Results Results/Procedures Labs Laboratory Tests 10/01/19 09:55 10/02/19 02:55 Patient resulted labs reviewed. Assessment/Plan Admission Diagnosis Assessment: Chest pain suspicious for unstable angina in need of cardiac cath SMoker HTN HLP Known CAD Plan: Cath with intervention Smoking cessation Admission Status: Observation Reason for Inpatient Admission: chest pain Diagnosis/Problems Diagnosis/Problems (1) Unstable angina (2) Stented coronary artery (3) S/P cardiac cath (4) Smoker (5) Chest pain Status: Acute Qualifiers: Chest pain type: unspecified Qualified Codes: R07.9 - Chest pain, unspecified (6) Coronary artery disease Status: Acute Clinical Quality Measures AMI/AHF: ASA po Prior to arrival: No DVT/VTE Risk/Contraindication: Risk Factor Score Per Nursin RFS Level Per Nursing on Admit: 2=Moderate FIGUEROA ARCHER DO Oct 01, 2019 15:22 POS
[2019-10-01] MEDS: RANOLAZINE 1000 MG PO SCH (20:48)
[2019-10-01] MEDS ORDERED: RANOLAZINE ER 500 MG TAB (RANEXA) PO SCH (21:00)
--- NOTE | 2019-10-01 21:19 | CARDIAC CATHETERIZATION ---
DATE OF SERVICE: 10/01/2019 CARDIAC CATHETERIZATION AND CORONARY INTERVENTION PRIMARY CONCRETE ANALYST: Dr. Godoy. The patient is a 54-year-old man who is experiencing symptoms of unstable angina. Cardiac catheterization was carried out after having obtained informed consent for cardiac catheterization and possible ad hoc coronary intervention. DESCRIPTION OF PROCEDURE: He was brought to the cardiac catheterization laboratory. Right groin was prepared and draped in the usual sterile fashion. Lidocaine 1% was used for local anesthesia. Modified Seldinger technique was used to advance a 6-Chadian sheath in right femoral artery. A 5-Chadian JL4 catheter was used for left coronary angiography, 5-Chadian JR4 catheter was used for right coronary angiography, 5-Chadian pigtail catheter was used for left heart catheterization and left ventricular angiography. Subsequently, percutaneous intervention was carried out in the left anterior descending artery that is described below. PERCUTANEOUS INTERVENTION OF THE LEFT ANTERIOR DESCENDING ARTERY: We used a 6-Chadian JL4 guide catheter to begin with, but this was not providing adequate support. We changed the guide catheter to 6-Chadian EBU 4 guide catheter. We tried various wires to try and cross a long complete occlusion in the proximal and mid left anterior descending artery within previously placed stents that are known to be overlapping Promus Premier 2.75 x 24 and 2.5 x 24 mm stents. After multiple attempts, we were able to cross the long lesion with Whisper extra support wire. The tip was placed in the distal vessel. Balloon angioplasty was carried out with Emerge 1.5 x 8 mm push balloon. This required multiple balloon inflations. We then carried out balloon angioplasty with Emerge 2.0 x 20 mm balloon. This also required multiple balloon inflations. Finally, we used Emerge 2.5 x 30 mm balloon, which was also inflated several times at different spots within the stented segment. The end result was that a complete occlusion was reduced to less than 30% stenosis with buddhist of normal antegrade flow. The patient tolerated the procedure well. Angiography of the right femoral artery was carried out through the sheath. Mynx was used to achieve hemostasis. He tolerated the procedure well. HEMODYNAMICS: Left ventricular end-diastolic pressure following coronary angiography was 18 mmHg. There is no significant pressure gradient on pullback across the aortic valve. Ascending aortic pressure was 99/66 with a mean of 79 mmHg. CORONARY ANGIOGRAPHY: Left main coronary artery does not exhibit significant obstructive disease. Left anterior descending artery was occluded in a long stented segment of the proximal and mid left anterior descending. This was successfully intervened on and the stenosis was reduced to less than 30% and normal antegrade flow was restored. The left circumflex artery has a 60% to 70% stenosis in its main obtuse marginal branch. This stenosis is in the ostial and proximal portion of the obtuse marginal and the mid portion of the left circumflex. The right coronary artery is dominant and has multiple plaques that constitute up to 40% stenoses. LEFT VENTRICULAR ANGIOGRAPHY: Left ventricular angiography was carried out in the right anterior oblique projection. Global left ventricular systolic function is impaired. There is anterolateral and apical hypokinesis. Left ventricular ejection fraction is approximately 45%. CONCLUSIONS: 1. Long occlusion within the proximal and mid left anterior descending (within a previously stented segment) that was successfully intervened on and the stenosis was reduced to less than 30% with buddhist of normal antegrade flow. 2. A 60% to 70% mid vessel stenosis in the left circumflex that extends into its main obtuse marginal branch. 3. Mild plaques within the right coronary artery. 4. Mild to moderate elevation of left ventricular end-diastolic pressure. 5. Impairment of global left ventricular systolic function with ejection fraction of 45%. 6. Anterolateral hypokinesis. DISCUSSION AND RECOMMENDATIONS: Dual antiplatelet therapy is being continued. Statins are being continued. We are adding beta iron to the regimen. We have advised him to continue to refrain from smoking cigarettes. He remains in the hospital for observation after the interventional procedure described above. Job ID: [id number] DocumentID: [id number] Dictated Date: 10/01/2019 17:41:45 Tuber Helper Date: 10/01/2019 21:18:20 Dictated By: CHEKO PLUMMER MD, MA, FACP, FACC,
[2019-10-02] VITALS: BP 123/80
[2019-10-02 03:24] LABS: HEMOGLOBIN 13.6 G/DL (13.3-17.7); MEAN PLATELET VOLUME 10.3 FL (7.4-10.4); RED CELL DISTRIBUTION WIDTH 13.5 % (10.0-14.5); WHITE BLOOD COUNT 7.7 10^3/uL (4.3-11.0)
[2019-10-02 03:43] LABS: BUN/CREATININE RATIO 16; CALCIUM 8.8 MG/DL (8.5-10.1); CARBON DIOXIDE 19 MMOL/L (21-32); CHLORIDE 106 MMOL/L (98-107); CHOLESTEROL 107 MG/DL (< 200); CREATININE SERUM 1.08 MG/DL (0.60-1.30); GFR ESTIMATED > 60; GLUCOSE 108 MG/DL (70-105); HDL CHOLESTEROL 27 MG/DL (40-60); POTASSIUM 4.1 MMOL/L (3.6-5.0); SODIUM 136 MMOL/L (135-145); TRIGLYCERIDES 140 MG/DL (<150); VLDL CHOLESTEROL 28 MG/DL (5-40)
[2019-10-02 05:31] VITALS: BP 116/71
[2019-10-02] MEDS: RANOLAZINE 1000 MG PO SCH (08:55)
[2019-10-02] MEDS ORDERED: ASPIRIN 81 MG CHEW (CHILDREN'S ASA) PO SCH (09:00)
[2019-10-02] MEDS ORDERED: CLOPIDOGREL 75 MG (PLAVIX) TABLET PO SCH (09:00)
[2019-10-02] MEDS ORDERED: CLOP75TA28 PO (09:24)
[2019-10-02] MEDS ORDERED: ASPI-999 PO (09:24)
[2019-10-02] MEDS ORDERED: METO-387 PO (09:24)
[2019-10-02] MEDS ORDERED: ATOR40TA PO (09:24)
--- NOTE | 2019-10-02 09:42 | Progress Note - Cardiology ---
Cardiology SOAP Progress Note Subjective: Sitting up in a recliner at the side of the bed. No c/o CP, palpitations, dyspnea, syncope or near syncope. No c/o right groin discomfort. Objective: I&O/Vital Signs 10/01/19 10/02/19 10/02/19 10/02/19 22:10 00:00 00:00 01:00 Temp 37.0 Pulse 61 62 67 Resp 16 16 B/P (MAP) 108/68 (81) 123/80 (94) Pulse Ox 98 97 95 O2 Delivery Room Air Room Air Room Air 10/02/19 10/02/19 10/02/19 10/02/19 04:00 05:31 07:00 07:44 Temp 37.3 Pulse 76 77 Resp 18 B/P (MAP) 116/71 (86) Pulse Ox 95 98 95 O2 Delivery Room Air Room Air Room Air 10/02/19 00:00 Intake Total 1770 ml Output Total 0 ml Balance 1770 ml Weight (Pounds): 200 Weight (Ounces): 9.0 Weight (Calculated Kilograms): 90.980160 Constitutional: AAO x 3, well-developed, well-nourished Respiratory: No accessory muscle use; lungs clear to percussion, lungs clear to auscultation Cardiovascular: regular rate-rhythm, S1 and S2, systolic murmur (faint PATRICIA at card base) Gastrointestional: No tender; soft; No guarding, No rebound; audible bowel sounds Extremities: No clubbing, No cyanosis, No significant edema Neurologic/Psychiatric: other (moves all limbs equally) Skin: No rash on exposed areas, No ulcerations on exposed areas Results/Procedures: Labs Laboratory Tests 10/01/19 09:55: White Blood Count 7.6, Red Blood Count 5.16, Hemoglobin 15.7, Hematocrit 45, Mean Corpuscular Volume 86, Mean Corpuscular Hemoglobin 30, Mean Corpuscular Hemoglobin Concent 35, Red Cell Distribution Width 13.8, Platelet Count 216, Mean Platelet Volume 10.1, Neutrophils (%) (Auto) 57, Lymphocytes (%) (Auto) 32, Monocytes (%) (Auto) 9, Eosinophils (%) (Auto) 1, Basophils (%) (Auto) 0, Neutrophils # (Auto) 4.4, Lymphocytes # (Auto) 2.4, Monocytes # (Auto) 0.7, Eosinophils # (Auto) 0.1, Basophils # (Auto) 0.0, Prothrombin Time 13.1, INR Comment 1.0, Activated Partial Thromboplast Time 29, Sodium Level 137, Potassium Level 4.3, Chloride Level 106, Carbon Dioxide Level 21, Anion Gap 10, Blood Urea Nitrogen 17, Creatinine 1.29, Estimat Glomerular Filtration Rate 58, BUN/Creatinine Ratio 13, Glucose Level 123H, Calcium Level 9.5, Corrected Calcium , Magnesium Level 1.9, Total Bilirubin 2.1H, Aspartate Amino Transf (AST/SGOT) 24, Alanine Aminotransferase (ALT/SGPT) 40, Alkaline Phosphatase 62, Myoglobin 106.2H, Troponin I < 0.028, Total Protein 7.5, Albumin 4.6H 10/02/19 02:55: White Blood Count 7.7, Red Blood Count 4.49, Hemoglobin 13.6, Hematocrit 39L, Mean Corpuscular Volume 87, Mean Corpuscular Hemoglobin 30, Mean Corpuscular Hemoglobin Concent 35, Red Cell Distribution Width 13.5, Platelet Count 193, Mean Platelet Volume 10.3, Sodium Level 136, Potassium Level 4.1, Chloride Level 106, Carbon Dioxide Level 19L, Anion Gap 11, Blood Urea Nitrogen 17, Creatinine 1.08, Estimat Glomerular Filtration Rate > 60, BUN/Creatinine Ratio 16, Glucose Level 108H, Calcium Level 8.8, Triglycerides Level 140, Cholesterol Level 107, LDL Cholesterol Direct 62, VLDL Cholesterol 28, HDL Cholesterol 27L Laboratory Tests 10/01/19 09:55 10/02/19 02:55 Procedures S/P cardiac cath on 10-01-[address] Please see Dr. Esparza's cardiac cath report for details. A/P: Assessment: Long occlusion within the proximal and mid left anterior descending (within a previously stented segment) that was successfully intervened on and the stenosis was reduced to less than 30% with buddhism of normal antegrade flow. A 60% to 70% mid vessel stenosis in the left circumflex that extends into its main obtuse marginal branch. Mild plaques within the right coronary artery. Mild to moderate elevation of left ventricular end-diastolic pressure. Impairment of global left ventricular systolic function with ejection fraction of 45%. Anterolateral hypokinesis. Per cardiac cath of 10-01-19 Coronary artery disease, status post acute myocardial infarction with ST elevation CA, underwent emergency cardiac catheterization on March 31, 2014 had Promus Premiere 2.524 mm stent to the mid LAD overlapping with another Promus Premiere 2.7524 mm stent proximally Echocardiogram by Dr. Godoy in Jul 2015 showed LVEF 40%. Mild MR and TR Hypertension, with h/o labile blood pressure Hyperlipidemia - statin H/O of noncompliance with medication and cardiac f/u BMI approx 35 Tobaccoism, quit smoking 2 weeks ago Hyperglycemia and elevated bilirubin level of undetermined etiology - PCP managing Chronic back pain Plan: * Post cardiac cath with intervention * Continue therapy with DAPT, statin, bb * Advised to continue to refrain from smoking cigs * OK to discharge home with out pt f/u with Dr. Godoy next week * Discussed the importance of compliance with medications including ASA and Plavix - verbalizes understanding Clinical Quality Measures AMI/AHF: ASA po Prior to arrival: BEN Chen Oct 02, 2019 09:42 POS
--- NOTE | 2019-10-02 09:43 | Discharge Inst-Cardiology ---
Discharge Inst-Cardiac Discharge Medications New Medications: Aspirin (Aspirin) 81 Mg Tab.chew 81 MG PO DAILY, #30 TAB 5 Refills Atorvastatin Calcium (Lipitor) 40 Mg Tablet 40 MG PO HS, #30 TAB 5 Refills Clopidogrel Bisulfate (Clopidogrel) 75 Mg Tablet 75 MG PO DAILY, #30 TAB 5 Refills Metoprolol Succinate (Metoprolol Succinate) 25 Mg Tab.er.24h 25 MG PO DAILY, #30 TAB 5 Refills Continued Medications: Acetaminophen (Acetaminophen) 500 Mg Tablet 500 MG PO Q6H PRN for PAIN-MILD (1-4), TAB (This prescription has been renewed) Gluc/Edgar-MSM#1/Vit C/Aki/Bor (Bogwlof-Fsglp-VAW Complex Cplt) 1 Each Tablet 1 TAB PO DAILY, TAB [place]-3/Dha/Epa/Fish Oil (Fish Oil 1,000 mg Softgel) 1 Each Capsule 1 CAP PO DAILY, CAP Ranolazine (Ranexa) 1,000 Mg Tab.er.12h 1000 MG PO BID Turmeric/Turmeric Root Extract (Turmeric 450-50 mg Capsule) 1 Each Capsule 1 CAP PO DAILY, CAP Discontinued Medications: Aspirin (Aspirin EC) 81 Mg Tablet.dr 81 MG PO DAILY, TAB Atorvastatin Calcium (Atorvastatin Calcium) 20 Mg Tablet 20 MG PO HS, TAB New, Converted or Re-Newed RX: Transmitted to Pharmacy Patient Instructions Patient Instructions: Please schedule follow up appointment to see Dr. Godoy next week Please take all medications as instructed BEN KHAN Oct 02, 2019 09:43 POS
--- NOTE | 2019-10-02 09:46 | Discharge Summary ---
Discharge Summary Hospital Course Was the Problem List Reviewed?: Yes Hospital Course Date of Admission: Admission Diagnosis : Family Physician/Provider: Buzz Major MD Date of Discharge: 10/02/19 Discharge Diagnosis: Unstable angina, s/p stent placement Hospital Course: Hospital Course: Pt had an uneventful hospital course, he was admitted after cardiac catheterization performed after unstable angina and was found to need intervention of stent that was completed by Dr. Esparza and he was deemed stable for DC and close follow up with [facility] cardiology. Labs and Pending Lab Test: Laboratory Tests 10/01/19 09:55: White Blood Count 7.6, Red Blood Count 5.16, Hemoglobin 15.7, Hematocrit 45, Mean Corpuscular Volume 86, Mean Corpuscular Hemoglobin 30, Mean Corpuscular Hemoglobin Concent 35, Red Cell Distribution Width 13.8, Platelet Count 216, Mean Platelet Volume 10.1, Neutrophils (%) (Auto) 57, Lymphocytes (%) (Auto) 32, Monocytes (%) (Auto) 9, Eosinophils (%) (Auto) 1, Basophils (%) (Auto) 0, Neutrophils # (Auto) 4.4, Lymphocytes # (Auto) 2.4, Monocytes # (Auto) 0.7, Eosinophils # (Auto) 0.1, Basophils # (Auto) 0.0, Prothrombin Time 13.1, INR Comment 1.0, Activated Partial Thromboplast Time 29, Sodium Level 137, Potassium Level 4.3, Chloride Level 106, Carbon Dioxide Level 21, Anion Gap 10, Blood Urea Nitrogen 17, Creatinine 1.29, Estimat Glomerular Filtration Rate 58, BUN/Creatinine Ratio 13, Glucose Level 123H, Calcium Level 9.5, Corrected Calcium , Magnesium Level 1.9, Total Bilirubin 2.1H, Aspartate Amino Transf (AST/SGOT) 24, Alanine Aminotransferase (ALT/SGPT) 40, Alkaline Phosphatase 62, Myoglobin 106.2H, Troponin I < 0.028, Total Protein 7.5, Albumin 4.6H 10/02/19 02:55: White Blood Count 7.7, Red Blood Count 4.49, Hemoglobin 13.6, Hematocrit 39L, Mean Corpuscular Volume 87, Mean Corpuscular Hemoglobin 30, Mean Corpuscular Hemoglobin Concent 35, Red Cell Distribution Width 13.5, Platelet Count 193, Mean Platelet Volume 10.3, Sodium Level 136, Potassium Level 4.1, Chloride Level 106, Carbon Dioxide Level 19L, Anion Gap 11, Blood Urea Nitrogen 17, Creatinine 1.08, Estimat Glomerular Filtration Rate > 60, BUN/Creatinine Ratio 16, Glucose Level 108H, Calcium Level 8.8, Triglycerides Level 140, Cholesterol Level 107, LDL Cholesterol Direct 62, VLDL Cholesterol 28, HDL Cholesterol 27L Home Meds Active Aspirin 81 Mg Tab.chew 81 Mg PO DAILY Metoprolol Succinate 25 Mg Tab.er.24h 25 Mg PO DAILY Lipitor (Atorvastatin Calcium) 40 Mg Tablet 40 Mg PO HS Clopidogrel (Clopidogrel Bisulfate) 75 Mg Tablet 75 Mg PO DAILY Reported Acetaminophen 500 Mg Tablet 500 Mg PO Q6H PRN Turmeric 450-50 mg Capsule (Turmeric/Turmeric Root Extract) 1 Each Capsule 1 Cap PO DAILY Fish Oil 1,000 mg Softgel ([place]-3/Dha/Epa/Fish Oil) 1 Each Capsule 1 Cap PO DAILY Pfkdydq-Emxzi-PCR Complex Cplt (Gluc/Edgar-MSM#1/Vit C/Aki/Bor) 1 Each Tablet 1 Tab PO DAILY Ranexa (Ranolazine) 1,000 Mg Tab.er.12h 1,000 Mg PO BID Assessment/Pt Instructions [facility] 1 week Discharge Planning: <30 minutes discharge planning Discharge Instructions Discharge Diet: Cardiac Diet Activity as Tolerated: Yes Discharge Physical Examination Vital Signs Vital Signs Date Time Temp Pulse Resp B/P (MAP) Pulse Ox O2 Delivery O2 Flow Rate FiO2 10/02/19 07:44 95 Room Air 10/02/19 07:00 77 10/02/19 05:31 37.3 18 116/71 (86) General Appearance: No Apparent Distress, WD/WN Allergies: Coded Allergies: propoxyphene (Verified Allergy, Severe, NAUSEA, 03/31/14) Pt has nausea and disorientation when taking Discharge Summary Date of Admission Date of Discharge Discharge Date: Oct 02, 2019 Clinical Quality Measures AMI/AHF: ASA po Prior to arrival: No DVT/VTE Risk/Contraindication: Risk Factor Score Per Nursin RFS Level Per Nursing on Admit: 2=Moderate FIGUEROA ARCHER DO Oct 02, 2019 09:46 POS
--- NOTE | 2019-10-02 20:09 | Progress Note - Cardiology ---
Cardiology SOAP Progress Note Subjective: No cp or palp or syncope or groin discomfort or leg discomfort or shortness of breath Wishes to go home Objective: I&O/Vital Signs 10/02/19 09:00 Pulse Ox 98 O2 Delivery Room Air 10/02/19 00:00 Intake Total 1770 ml Output Total 0 ml Balance 1770 ml Weight (Pounds): 200 Weight (Ounces): 9.0 Weight (Calculated Kilograms): 90.665668 Constitutional: AAO x 3, well-developed, well-nourished Respiratory: No accessory muscle use; lungs clear to percussion, lungs clear to auscultation Cardiovascular: regular rate-rhythm, S1 and S2, systolic murmur (faint PATRICIA at card base) Gastrointestional: No tender; soft; No guarding, No rebound; audible bowel sounds Extremities: No clubbing, No cyanosis, No significant edema Neurologic/Psychiatric: other (moves all limbs equally) Skin: No rash on exposed areas, No ulcerations on exposed areas Results/Procedures: Labs Laboratory Tests 10/02/19 02:55: White Blood Count 7.7, Red Blood Count 4.49, Hemoglobin 13.6, Hematocrit 39L, Mean Corpuscular Volume 87, Mean Corpuscular Hemoglobin 30, Mean Corpuscular Hemoglobin Concent 35, Red Cell Distribution Width 13.5, Platelet Count 193, Mean Platelet Volume 10.3, Sodium Level 136, Potassium Level 4.1, Chloride Level 106, Carbon Dioxide Level 19L, Anion Gap 11, Blood Urea Nitrogen 17, Creatinine 1.08, Estimat Glomerular Filtration Rate > 60, BUN/Creatinine Ratio 16, Glucose Level 108H, Calcium Level 8.8, Triglycerides Level 140, Cholesterol Level 107, LDL Cholesterol Direct 62, VLDL Cholesterol 28, HDL Cholesterol 27L Laboratory Tests 10/01/19 09:55 10/02/19 02:55 A/P: Assessment: Long occlusion within the proximal and mid left anterior descending (within a previously stented segment: Promus chaim 2.75x24 and 2.5x24) that was successfully intervened on and the stenosis was reduced to less than 30% with judaism of normal antegrade flow. A 60% to 70% mid vessel stenosis in the l eft circumflex that extends into its main obtuse marginal branch. Mild plaques within the right coronary artery. Mild to moderate elevation of left ventricular end-diastolic pressure. Impairment of global left ventricular systolic function with ejection fraction of 45%. Anterolateral hypokinesis. Per cardiac cath of 10-01-[address] Godoy in Jul 2015 showed LVEF 40%. Mild MR and TR Hypertension, with h/o labile blood pressure Hyperlipidemia - statin H/O of noncompliance with medication and cardiac f/u BMI approx 35 Tobaccoism, quit smoking 2 weeks ago Hyperglycemia and elevated bilirubin level of undetermined etiology - PCP man aging Chronic back pain Plan: * Post cardiac cath with intervention * Continue therapy with DAPT, statin, bb * Advised to continue to refrain from smoking cigs * OK to discharge home with out pt f/u with Dr. Godoy next week * Discussed the importance of compliance with medications including ASA and Plavix - verbalizes understanding Clinical Quality Measures AMI/AHF: ASA po Prior to arrival: CHEKO Johnson MD FACP FACC CCDS Oct 02, 2019 20:09 POS
== END 2019-10-02 09:48 | disposition home or self-care (01) ==
LOC: EDUNIT# 09:41 → ER 09:43 → CATH 10:50 → ICU 13:14 → CATH 10-02 09:48
PROVIDERS: ATTEND Internal Medicine Cardiovascular Disease
DX: I25.110 Atherosclerotic heart disease of native coronary artery with unstable angina pectoris (principal); I10 Essential (primary) hypertension; I25.2 Old myocardial infarction; R73.9 Hyperglycemia, unspecified; G89.29 Other chronic pain; M54.9 Dorsalgia, unspecified; E78.5 Hyperlipidemia, unspecified; E66.9 Obesity, unspecified; G47.9 Sleep disorder, unspecified; F32.9 Major depressive disorder, single episode, unspecified; F41.9 Anxiety disorder, unspecified; Z95.1 Presence of aortocoronary bypass graft; Z68.35 Body mass index [BMI] 35.0-35.9, adult; Z79.82 Long term (current) use of aspirin; Z88.8 Allergy status to other drugs, medicaments and biological substances; Z87.891 Personal history of nicotine dependence; Z80.0 Family history of malignant neoplasm of digestive organs; Z82.61 Family history of arthritis; Z82.49 Family history of ischemic heart disease and other diseases of the circulatory system
CPT/HCPCS: 36415; 71045; 80048; 80053; 80061; 83735; 83874; 84484; 85025; 85027; 85610; 85730; 93005; 93041; 93458

== ENCOUNTER 2022-06-03 09:44 | Emergency (ER) | payer MEDICARE ==
[~2022-06-03 09:44] MED LIST changes: -ACET-77 PO; +ACET-78 PO; +ASPI-1238 PO; -ASPI-983 PO; +ASPI-999 PO; +ATOR40TA PO; +CLOP75TA28 PO; -ENAL2.5T PO; +MTP25TSR PO; -OMEP20CA13 PO; +OMEP20CA18 PO; +OMEP20TA56 PO; -OMEP20TA7 PO
== END 2022-06-03 11:20 | disposition left against medical advice (07) ==
LOC: EDUNIT# 09:44 → ER 09:46
DX: I95.9 Hypotension, unspecified (principal)

== ENCOUNTER 2023-03-20 21:16 | Observation (INO) | payer MEDICARE ==
[~2023-03-20] VITALS: Ht 188 cm; Wt 122.0 kg
[2023-03-20] MEDS ORDERED: NS IV 1000 ML 1,000 ML IV STA (21:33)
[2023-03-20 21:34] LABS: BASOPHILS % (AUTO) 0 % (0-10); EOSINOPHILS # (AUTO) 0.1 10^3/uL (0.0-0.3); EOSINOPHILS % (AUTO) 1 % (0-10); HEMATOCRIT 41 % (40-54); HEMOGLOBIN 13.9 g/dL (13.3-17.7); LYMPHOCYTES # (AUTO) 2.1 10^3/uL (1.0-4.0); LYMPHOCYTES % (AUTO) 22 % (12-44); MEAN CORPUSCULAR HEMOGLOBIN 31 pg (25-34); MEAN CORPUSCULAR HGB CONC 34 g/dL (32-36); MEAN CORPUSCULAR VOLUME 89 fL (80-99); MEAN PLATELET VOLUME 10.2 fL (9.0-12.2); MONOCYTES # (AUTO) 0.8 10^3/uL (0.0-1.0); MONOCYTES % (AUTO) 8 % (0-12); NEUTROPHILS # (AUTO) 6.7 10^3/uL (1.8-7.8); NEUTROPHILS % (AUTO) 69 % (42-75); PLATELET COUNT 198 10^3/uL (130-400); WHITE BLOOD COUNT 9.8 10^3/uL (4.3-11.0)
--- NOTE | 2023-03-20 21:39 | ED Abdominal Pain ---
General Chief Complaint: Abdominal/GI Problems Stated Complaint: ABD PAIN Nursing Triage Note: PT TO ED BY EMS WITH C/O ABD PAIN BEGINNING AROUND 1999 THIS EVENING. PT REPORTS PAIN STARTED IN RUQ AND SPREAD T/O ABD. ALSO C/O NAUSEA. PT DIAPHORETIC UPON ARRIVAL. Source of Information: Patient Exam Limitations: No Limitations (TRINO MUÑOZ) History of Present Illness Date Seen by Provider: March 20, 2023 Time Seen by Provider: 21:37 Initial Comments Patient is a 58-year-old male who presents the ED with right-sided abdominal pain. Patient states pain started around 6 PM this evening. Pain started in his right upper quadrant. Pain is radiated to the right lower quadrant and left sided abdomen. Described as more of a throbbing pain. Patient started having chills with sweating. Patient contacted EMS. Pain does not radiate to the back. Nausea without vomiting or diarrhea. No history of previous abdominal surgery. Normal urination. History of coronary artery disease. Denies of any specific chest pain, shortness of breath or cough. Patient Was given 50 of fentanyl by EMS before arrival. Rates pain 8 out of 10. Patient denies headache, visual changes, sore throat, chest pain, cough, shortness of breaht, ear pain (TRINO MUÑOZ) Allergies and Home Medications Allergies Coded Allergies: propoxyphene (Verified Allergy, Severe, NAUSEA, 03/31/14) Pt has nausea and disorientation when taking Patient Home Medication List Home Medication List Reviewed: Yes (TRINO MUÑOZ) Aspirin (Aspirin EC) 81 Mg Tablet.dr, 81 MG PO DAILY, (Reported) Entered as Reported by: TRACEY COLLINS on 03/21/23939 Last Action: Reviewed Atorvastatin Calcium (Atorvastatin Calcium) 80 Mg Tablet, 80 MG PO HS, (Reported) Entered as Reported by: TRACEY COLLINS on 03/21/23939 Last Action: Reviewed Gluc/Edgar-MSM#1/Vit C/Aki/Bor (Vijecev-Uvoey-LCQ Complex Cplt) 1 Each Tablet, 1 TAB PO DAILY, (Reported) Entered as Reported by: TRACEY COLLINS on 09/30/19 1311 Last Action: Reviewed Ondansetron (Ondansetron Odt) 4 Mg Tab.rapdis, 4 MG SL Q4H PRN for NAUSEA/VOMITING Prescribed by: FIGUEROA ARCHER on 03/21/23958 Pantoprazole Sodium (Protonix) 40 Mg Tablet.dr, 40 MG PO DAILY Prescribed by: FIGUEROA ARCHER on 03/21/23958 Ranolazine (Ranolazine ER) 1,000 Mg Tab.er.12h, 1,000 MG PO BID, (Reported) Entered as Reported by: TRACEY COLLINS on 03/21/23939 Last Action: Reviewed Turmeric/Turmeric Root Extract (Turmeric 450-50 mg Capsule) 1 Each Capsule, 1 CAP PO DAILY, (Reported) Entered as Reported by: TRACEY COLLINS on 09/30/191310 Last Action: Reviewed Discontinued Medications Acetaminophen (Acetaminophen) 500 Mg Tablet, 500 MG PO Q6H PRN for PAIN-MILD (1- 4), (Reported) Discontinued Reason: No Longer Taking Entered as Reported by: TRACEY COLLINS on 09/30/191310 Last Action: Discontinued Aspirin (Aspirin) 81 Mg Tab.chew, 81 MG PO DAILY Discontinued Reason: No Longer Taking Prescribed by: BEN KHAN on 10/02/19923 Last Action: Discontinued Atorvastatin Calcium (Lipitor) 40 Mg Tablet, 40 MG PO HS Discontinued Reason: No Longer Taking Prescribed by: BEN KHAN on 10/02/19923 Last Action: Discontinued Clopidogrel Bisulfate (Clopidogrel) 75 Mg Tablet, 75 MG PO DAILY Discontinued Reason: No Longer Taking Prescribed by: BEN KHAN on 10/02/19923 Last Action: Discontinued Metoprolol Succinate (Metoprolol Succinate) 25 Mg Tab.er.24h, 25 MG PO DAILY Discontinued Reason: No Longer Taking Prescribed by: BEN KHAN on 10/02/19923 Last Action: Discontinued [place]-3/Dha/Epa/Fish Oil (Fish Oil 1,000 mg Softgel) 1 Each Capsule, 1 CAP PO DAILY, (Reported) Discontinued Reason: No Longer Taking Entered as Reported by: TRACEY COLLINS on 09/30/191310 Last Action: Discontinued Ranolazine (Ranexa) 1,000 Mg Tab.er.12h, 1,000 MG PO BID, (Reported) Discontinued Reason: No Longer Taking Entered as Reported by: CHARITY BURTON on 07/29/15 1029 Last Action: Discontinued Review of Systems Review of Systems Constitutional: No chills, No diaphoresis, No malaise, No weakness EENTM: No Eye Pain Respiratory: Denies Cough Cardiovascular: Denies Chest Pain Gastrointestinal: Abdominal Pain; Denies Constipated, Denies Diarrhea; Nausea; Denies Vomiting Genitourinary: Denies Burning, Denies Discharge Musculoskeletal: No back pain Skin: No change in hair/nails (TRINO MUÑOZ) All Other Systems Reviewed Negative Unless Noted: Yes (TRINO MUÑOZ) Past Nfvzvok-Ylyilw-Qbqkuh Hx Patient Social History Tobacco Use?: Yes Tobacco type used: Cigarettes Smoking Status: Current Everyday Smoker Use of E-Cig and/or Vaping dev: No Substance use?: No Alcohol Use?: Yes Alcohol Frequency: Once in a while Pt feels they are or have been: No (TRINO MUÑOZ) Immunizations Up To Date Tetanus Booster (TDap): Less than 5yrs PED Vaccines UTD: Yes Influenza Vaccine Up-to-Date: No; Not Current First/Initial COVID19 Vaccinat: DENIES (TRINO MUÑOZ) Seasonal Allergies Seasonal Allergies: No (TRINO MUÑOZ) Past Medical History Surgery/Hospitalization HX: [place] Surgeries: Yes Coronary Stent Respiratory: Yes Pneumonia, COPD Cardiac: Yes (CHF) Coronary Artery Disease, Heart Attack Neurological: No Reproductive Disorders: No Sexually Transmitted Disease: No HIV/AIDS: No Gastrointestinal: Yes Chronic Constipation Musculoskeletal: Yes (left meniscus tear, cervical spine disease) Degenerate Disk Disease, Chronic Back Pain Endocrine: No HEENT: No Cancer: No Psychosocial: Yes Sleep Difficulties, Anxiety, Depression Integumentary: No Blood Disorders: No Adverse Reaction/Blood Tranf: No (TRINO MUÑOZ) Family Medical History Arthritis 19 MOTHER FH: CAD (coronary artery disease) 19 FATHER FH: colon cancer G8 SISTER FH: stomach cancer 19 FATHER Cancer (TRINO MUÑOZ) Physical Exam Vital Signs Vital Signs - First Documented 03/20/23 21:18 Temp 36.7 Pulse 68 Resp 16 B/P (MAP) 144/90 (108) Pulse Ox 97 O2 Delivery Room Air (PAUL LAINEZ MD) Vital Signs Capillary Refill : Less Than 3 Seconds (TRINO MUÑOZ) Height/Weight/BMI Height: 5'7.00" Weight: 200lbs. 9.0oz. [id number]; 34.00 BMI Method:Estimated General Appearance: WD/WN, no apparent distress HEENT: PERRL/EOMI, normal ENT inspection, TMs normal, pharynx normal Neck: non-tender, full range of motion, supple, normal inspection Respiratory: chest non-tender, lungs clear, normal breath sounds, no respiratory distress, no accessory muscle use Cardiovascular: regular rate, rhythm, no edema, no gallop, no JVD Gastrointestinal: normal bowel sounds, soft, no organomegaly, no pulsatile mass, tenderness (Right upper quadrant tenderness, right lower quadrant tenderness, left upper quadrant tenderness. 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, no motor/sensory deficits, alert, normal mood/affect, oriented x 3 Skin: normal color, warm/dry (TRINO MUÑOZ) Progress/Results/Core Measures Results/Orders Lab Results Laboratory Tests Test 03/20/23 21:20 03/20/23 21:35 03/20/23 22:19 03/20/23 22:49 Range/Units White Blood Count 9.8 4.3-11.0 10^3/uL Red Blood Count 4.54 4.30-5.52 10^6/uL Hemoglobin 13.9 13.3-17.7 g/dL Hematocrit 41 40-54 % Mean Corpuscular Volume 89 80-99 fL Mean Corpuscular Hemoglobin 31 25-34 pg Mean Corpuscular Hemoglobin Concent 34 32-36 g/dL Red Cell Distribution Width 12.6 10.0-14.5 % Platelet Count 198 130-400 10^3/uL Mean Platelet Volume 10.2 9.0-12.2 fL Immature Granulocyte % (Auto) 0 % Neutrophils (%) (Auto) 69 42-75 % Lymphocytes (%) (Auto) 22 12-44 % Monocytes (%) (Auto) 8 0-12 % Eosinophils (%) (Auto) 1 0-10 % Basophils (%) (Auto) 0 0-10 % Neutrophils # (Auto) 6.7 1.8-7.8 10^3/uL Lymphocytes # (Auto) 2.1 1.0-4.0 10^3/uL Monocytes # (Auto) 0.8 0.0-1.0 10^3/uL Eosinophils # (Auto) 0.1 0.0-0.3 10^3/uL Basophils # (Auto) 0.0 0.0-0.1 10^3/uL Immature Granulocyte # (Auto) 0.0 0.0-0.1 10^3/uL Sodium Level 137 135-145 MMOL/L Potassium Level 4.0 3.6-5.0 MMOL/L Chloride Level 107 98-107 MMOL/L Carbon Dioxide Level 20 L 21-32 MMOL/L Anion Gap 10 5-14 MMOL/L Blood Urea Nitrogen 18 7-18 MG/DL Creatinine 1.25 0.60-1.30 MG/DL Estimat Glomerular Filtration Rate 66 BUN/Creatinine Ratio 14 Glucose Level 215 H 70-105 MG/DL Calcium Level 8.7 8.5-10.1 MG/DL Corrected Calcium 8.9 8.5-10.1 MG/DL Total Bilirubin 0.8 0.1-1.0 MG/DL Aspartate Amino Transf (AST/SGOT) 17 5-34 U/L Alanine Aminotransferase (ALT/SGPT) 23 0-55 U/L Alkaline Phosphatase 64 40-136 U/L Total Protein 6.4 6.4-8.2 GM/DL Albumin 3.8 3.2-4.5 GM/DL Lipase 37 8-78 U/L Troponin I < 0.028 <0.028 NG/ML Urine Color YELLOW Urine Clarity SL CLOUDY Urine pH 6.0 5-9 Urine Specific [place] >=1.030 1.016-1.022 Urine Protein NEGATIVE NEGATIVE Urine Glucose (UA) 3+ H NEGATIVE Urine Ketones NEGATIVE NEGATIVE Urine Nitrite NEGATIVE NEGATIVE Urine Bilirubin NEGATIVE NEGATIVE Urine Urobilinogen 1.0 < = 1.0 MG/DL Urine Leukocyte Esterase NEGATIVE NEGATIVE Urine RBC (Auto) TRACE-I H NEGATIVE Urine RBC 0-2 /HPF Urine WBC RARE /HPF Urine Squamous Epithelial Cells 2-5 /HPF Urine Crystals PRESENT H /LPF Urine Amorphous Sediment RARE VIRAL URATES H /LPF Urine Bacteria TRACE /HPF Urine Casts NONE /LPF Urine Mucus SMALL H /LPF Urine Culture Indicated NO C-Reactive Protein High Sensitivity 0.26 0.00-0.50 MG/DL (PAUL LAINEZ MD) My Orders Orders - PAUL LAINEZ MD Hs C Reactive Protein (03/20/23 22:47) Scopolamine Patch (Transderm-Scop Patch) (03/20/23 23:30) Pantoprazole Injection (Protonix Injecti (03/21/23 00:15) Ondansetron Injection (Zofran Injectio (03/21/23 00:30) Morphine Injection (Morphine Injection (03/21/23 00:31) (PAUL LAINEZ MD) Medications Given in ED Current Medications Medications Dose Ordered Sig/Darrel Route Start Time Stop Time Status Last Admin Dose Admin Iohexol 100 ml ONCE ONCE IV 03/20/23 23:30 03/20/23 23:32 DC 03/20/23 23:23 98 ML Morphine Sulfate 4 mg ONCE ONCE IVP 03/20/23 21:45 03/20/23 21:46 DC 03/21/23 00:37 4 MG Ondansetron HCl 4 mg ONCE ONCE IVP 03/20/23 22:30 03/20/23 22:31 DC 03/20/23 22:25 4 MG Ondansetron HCl 4 mg ONCE ONCE IVP 03/21/23 00:30 03/21/23 00:31 DC 03/21/23 00:40 4 MG Pantoprazole 40 mg ONCE ONCE IV 03/21/23 00:15 03/21/23 00:16 DC 03/21/23 00:40 40 MG Promethazine HCl 25 mg ONCE ONCE IVP 03/20/23 23:00 03/20/23 23:01 DC 03/20/23 23:15 25 MG Scopolamine 1.5 mg ONCE ONCE TD 03/20/23 23:30 03/20/23 23:31 DC 03/20/23 23:45 1.5 MG Sodium Chloride 100 ml ONCE ONCE IV 03/20/23 23:30 03/20/23 23:32 DC 03/20/23 23:23 78 ML (PAUL LAINEZ MD) Vital Signs/I&O 03/20/23 21:18 Temp 36.7 Pulse 68 Resp 16 B/P (MAP) 144/90 (108) Pulse Ox 97 O2 Delivery Room Air (PAUL LAINEZ MD) Blood Pressure Mean: 108 Progress Progress Note : Progress Note Care of this patient was assumed from INES Miranda at the conclusion of his shift. Patient received a dose of Zofran and a liter of IV normal saline. Labs were reviewed and interpreted by me including CBC, CMP, lipase, CRP, and urinalysis. Other than glucose in the urine, there were no significant abnormalities. CT was obtained and reviewed by me. There is no evidence of bowel obstruction, appendicitis, or other inflammatory processes by my interpre tation. Gallstones and calcified stones and/or sludge were noted within the gallbladder. There is no pericholecystic fluid or associated inflammatory change of the gallbladder wall. Stomach was relatively empty on the CT scan. Radiologist [facility] report was reviewed with similar findings. Patient's pain was treated with Zofran. He received an additional dose of Zofran and a dose of Phenergan. Protonix was also administered. Due to his intractable nausea and vomiting, admission was sought for symptom control. Dr. Rockwell, general surgeon on-call, was consulted. Gallbladder ultrasound was recommended and it was ordered for 0700. I discussed CODE STATUS with the patient and he requests full CODE STATUS. (PAUL LAINEZ MD) Diagnostic Imaging Diagonstic Imaging: CT Plain Films/CT/US/NM/MRI: abdomen, pelvis Comments CT abdomen and pelvis with contrast was obtained and stat rad report reviewed. Gallstones were noted without complicating features. There is no biliary ductal dilatation. No features of acute cholecystitis. (PAUL LAINEZ MD) Departure Communication (Admissions) Time/Spoke to Admitting Phy: 00:05 Dr. Archer Time/Spoke to Consulting Phy: 23:46 Dr. Rockwell (PAUL LAINEZ MD) Communication (PCP) Reviewed previous ER visits, H&P, lab testing. acute onset of right side abdominal pain started right upper quadrant radiated to the left side. No history of previous abdominal surgery. Patient with nausea. Did vomit once here. Started on liter fluid, nausea medication general lab work CT abdomen and pelvis. Patient was discussed with Dr. Lainez who took over care at 2300. Lab work pending, CT scan abdomen pelvis pain (TRINO MUÑOZ) Impression Primary Impression: Intractable nausea and vomiting Additional Impressions: Abdominal pain Qualified Codes: R10.84 - Generalized abdominal pain Gallstones Orthostatic hypotension Disposition: ADMITTED INPATIENT Condition: Stable Admissions Decision to Admit Reason: Admit from ER (General) Decision to Admit/Date: March 20, 2023 Time/Decision to Admit Time: 23:46 (PAUL LAINEZ MD) Departure-Patient Inst. Referrals: [facility] [place] Primary Care Physician Scripts Ondansetron (Ondansetron Odt) 4 Mg Tab.rapdis 4 MG SL Q4H PRN for NAUSEA/VOMITING, #12 TAB Prov: FIGUEROA ARCHER DO 03/21/23 Pantoprazole Sodium (Protonix) 40 Mg Tablet.dr 40 MG PO DAILY, #30 TAB Prov: FIGUEROA ARCHER DO 03/21/23 Copy Copies To 1: [facility]/TRINO HERNANDEZ March 20, 2023 21:39 PAUL LAINEZ MD March 21, 2023 00:14
[2023-03-20] MEDS ORDERED: morphine INJ 10 MG/ML 1ML (SYR OR VIAL) IVP ONE (21:45)
[2023-03-20 21:48] LABS: ALBUMIN 3.8 GM/DL (3.2-4.5); BILIRUBIN,TOTAL 0.8 MG/DL (0.1-1.0); CALCIUM 8.7 MG/DL (8.5-10.1); CREATININE SERUM 1.25 MG/DL (0.60-1.30); TOTAL PROTEIN 6.4 GM/DL (6.4-8.2)
[2023-03-20 22:24] LABS: BILIRUBIN,URINE NEGATIVE (NEGATIVE); CLARITY,URINE SL CLOUDY; COLOR,URINE YELLOW; GLUCOSE, URINE (UA) 3+ (NEGATIVE); KETONES,URINE NEGATIVE (NEGATIVE); LEUKOCYTE ESTERASE ,URINE NEGATIVE (NEGATIVE); NITRITE,URINE NEGATIVE (NEGATIVE); PROTEIN,URINE NEGATIVE (NEGATIVE)
[2023-03-20] MEDS ORDERED: ONDANSETRON 4 MG/2 ML (SDV) Z0FRAN IVP ONE (22:30)
[2023-03-20 22:34] LABS: AMORPHOUS SEDIMENT,UR RARE AMOR URATES /LPF; BACTERIA,URINE TRACE /HPF; RBC,URINE 0-2 /HPF; WBC,URINE RARE /HPF
[2023-03-20] MEDS ORDERED: PROMETHAZINE INJ 25 MG/ML (PHENERGAN) AMP IVP ONE (23:00)
[2023-03-20] MEDS ORDERED: NS 100 ML (IVPB) BAG IV ONE (23:30)
[2023-03-20] MEDS ORDERED: HOLD METFORMIN - RECEIVED CONTRAST 20 ML VIAL IV SCH (23:30)
[2023-03-20] MEDS ORDERED: SCOPOLAMINE 1.5 MG (TRANSDERM-SCOP) PATCH TD ONE (23:30)
[2023-03-20] MEDS ORDERED: IOHEXOL 350 MG/ML 100 ML (OMNIPAQUE 350) VIAL IV ONE (23:30)
[2023-03-21] MEDS ORDERED: PANTOPRAZOLE 40 MG (PROTONIX) VIAL IV ONE (00:15)
[2023-03-21] MEDS ORDERED: ONDANSETRON 4 MG/2 ML (SDV) Z0FRAN IVP ONE (00:30)
[2023-03-21] MEDS ORDERED: morphine INJ 4 MG/ML 1 ML (VIAL/SYRINGE) ONE (00:31)
[2023-03-21 01:15] VITALS: BP 156/69
[2023-03-21] MEDS ORDERED: LACTATED RINGERS 1,000 ML IV ONE (01:24)
[2023-03-21] MEDS: LACTATED RINGERS 1,000 ML IV SCH ×2 (01:29→07:58)
[2023-03-21] MEDS ORDERED: morphine INJ 4 MG/ML 1 ML (VIAL/SYRINGE) IV PRN (01:30)
[2023-03-21] MEDS ORDERED: ONDANSETRON 4 MG/2 ML (SDV) Z0FRAN IV PRN (01:30)
[2023-03-21] MEDS ORDERED: PROMETHAZINE INJ 25 MG/ML (PHENERGAN) AMP IVP PRN (01:30)
[2023-03-21 04:56] VITALS: BP 122/65
--- NOTE | 2023-03-21 05:14 | History & Physical ---
History of Present Illness Date Seen 03/21/23 Time Seen by a Provider: 10:00 Attending Physician [place] PCP Admitting Physician: Fay Tiwari DO Attending Physician: Fay Tiwari DO Referring Physician Date of Admission March 21, 2023 at 00:53 Home Medications & Allergies Home Medications Reviewed patient Home Medication Reconciliation performed by pharmacy medication reconciliations compressor service technician and/or nursing. Patients Allergies have been reviewed. Allergies Allergies Coded Allergies propoxyphene (Verified Allergy, Severe, NAUSEA, 03/31/14) Pt has nausea and disorientation when taking Past Gltfdxm-Lsighd-Uzsxtd Hx Patient Social History Alcohol Beverage of Choice: Rum Smoking Status: Current Everyday Smoker Type Used: Cigarettes Recent Hopitalizations: Yes (LAST PM) Recent Infectious Disease Expo: No Immunizations Up To Date Tetanus Booster (TDap): Less than 5yrs Pediatric: Yes Seasonal Allergies Seasonal Allergies: No Past Medical History Surgeries: Coronary Stent Cardiac: Coronary Artery Disease, Heart Attack Reproductive: No Sexually Transmitted Disease: No HIV/AIDS: No Gastrointestinal: Chronic Constipation Musculoskeletal: Degenerate Disk Disease, Chronic Back Pain Psychosocial: Sleep Difficulties, Anxiety, Depression History of Blood Disorders: No Adverse Reaction to Blood [place]: No Family History Arthritis 19 MOTHER FH: CAD (coronary artery disease) 19 FATHER FH: colon cancer G8 SISTER FH: stomach cancer 19 FATHER Cancer Physical Exam Physical Exam Vital Signs Vital Signs - First Documented 03/20/23 21:18 Temp 36.7 Pulse 68 Resp 16 B/P (MAP) 144/90 (108) Pulse Ox 97 O2 Delivery Room Air Capillary Refill : Less Than 3 Seconds Height, Weight, BMI Height: 5'7.00" Weight: 200lbs. 9.0oz. [id number]; 34.51 BMI Method:Estimated Results Results/Procedures Labs Laboratory Tests 03/20/23 21:20 03/21/23 05:17 Patient resulted labs reviewed. FAY TIWARI DO March 21, 2023 05:14
[2023-03-21 06:18] LABS: BASOPHILS % (AUTO) 0 % (0-10); EOSINOPHILS % (AUTO) 0 % (0-10); HEMATOCRIT 40 % (40-54); HEMOGLOBIN 14.4 g/dL (13.3-17.7); LYMPHOCYTES % (AUTO) 14 % (12-44); MEAN CORPUSCULAR HEMOGLOBIN 32 pg (25-34); MEAN CORPUSCULAR HGB CONC 36 g/dL (32-36); MEAN CORPUSCULAR VOLUME 90 fL (80-99); MONOCYTES # (AUTO) 1.2 10^3/uL (0.0-1.0); MONOCYTES % (AUTO) 8 % (0-12); NEUTROPHILS # (AUTO) 11.1 10^3/uL (1.8-7.8); NEUTROPHILS % (AUTO) 77 % (42-75); PLATELET COUNT 233 10^3/uL (130-400); WHITE BLOOD COUNT 14.4 10^3/uL (4.3-11.0)
[2023-03-21 06:26] LABS: ALBUMIN 3.8 GM/DL (3.2-4.5); POTASSIUM 4.3 MMOL/L (3.6-5.0)
[2023-03-21 06:27] LABS: CALCIUM 8.7 MG/DL (8.5-10.1)
[2023-03-21 06:29] LABS: TOTAL PROTEIN 6.4 GM/DL (6.4-8.2)
[2023-03-21 06:31] LABS: BILIRUBIN,TOTAL 0.9 MG/DL (0.1-1.0)
[2023-03-21 06:32] LABS: CREATININE SERUM 1.01 MG/DL (0.60-1.30)
--- NOTE | 2023-03-21 06:42 | Diagnostic Imaging Report ---
PROCEDURE: CT abdomen and pelvis with contrast, rule out appendicitis. TECHNIQUE: Multiple contiguous axial images were obtained through the abdomen and pelvis after the administration of intravenous contrast. All CT scans use one or more of the following dose optimizing techniques: automated exposure control, MA and/or KvP adjustment based on patient size and exam type or iterative reconstruction. INDICATION: Abdominal pain, nausea and vomiting. COMPARISON: None. FINDINGS: Included views of the chest demonstrate subpleural reticulations which may be seen with scarring or basilar dependent atelectasis. Liver, spleen, and adrenal glands are normal. Pancreas is normal. There is cholelithiasis. No gallbladder distention. No intra or extrahepatic biliary duct dilation. The aorta and IVC are normal in caliber. There is mild calcified aortic atherosclerosis. A small fat-containing left inguinal hernia. The bowel is nondilated. Normal appendix. Scattered diverticula of the sigmoid colon without evidence of acute diverticulitis. No free air, loculated fluid collections, or ascites. The kidneys demonstrate a 2 cm right renal cyst and few scattered bilateral nonobstructing renal cyst stones measuring approximately 0.2 cm. Multilevel degenerative changes of the lumbar spine with reversal of the lumbar lordosis and moderate to severe spinal canal stenosis at L3-L4, L4-L5, and L5-S1. IMPRESSION: Cholelithiasis. Nonobstructing bilateral renal calculi. Lumbar spondylosis with moderate to severe spinal canal stenosis at L3-L4, L4-L5, and L5-S1. Small cyst fat-containing left inguinal hernia. Diverticulosis without evidence of diverticulitis. Normal appendix. No bowel obstruction. Coronary artery atherosclerosis. Dictated by: Dictated on workstation # [id number]
[2023-03-21 07:15] LABS: NEUTROPHILS % (MANUAL) 80 %
[2023-03-21 07:16] LABS: LYMPHOCYTES % (MANUAL) 16 %; MONOCYTES % (MANUAL) 4 %; RBC MORPH Normal
[2023-03-21 07:21] VITALS: BP 117/73
--- NOTE | 2023-03-21 08:24 | Consultation - Surgery ---
WILLOW HELTON 03/21/23 0824: History of Present Illness History of Present Illness Patient Consulted On(xenia/time) 03/21/23 08:19 Date Seen by Provider: March 21, 2023 Time Seen by Provider: 08:00 History of Present Illness Patient states he went to the ER due to severe RUQ pain and sweating. States the pain progressively moved to the RLQ and LLQ as the evening progressed. Tam a 58 year old male presents for abdominal pain and nausea. Patient states that he went to the ER yesterday evening due to severe RUQ pain and sweating. State the pain traveled to the RLQ and LLQ as the evening progressed. Patient states that he is currently experiencing nausea but not vomiting. Rates his abdominal pain as a 5/10. He states that he has never had a pain like this before. Patient states that before this pain started after he ate about 1/2 of a [employer] cheeseburger. He states that he usually tolerates spicy and greasy foods ok, but will occasionally experience abdominal pain after eating those. Allergies and Home Medications Allergies Coded Allergies: propoxyphene (Verified Allergy, Severe, NAUSEA, 03/31/14) Pt has nausea and disorientation when taking Patient Home Medication List Home Medication List Reviewed: Yes Aspirin (Aspirin EC) 81 Mg Tablet., 81 MG PO DAILY, (Reported) Entered as Reported by: TRACEY COLLINS on 03/21/23 0940 Last Action: Reviewed Atorvastatin Calcium (Atorvastatin Calcium) 80 Mg Tablet, 80 MG PO HS, (Reported) Entered as Reported by: TRACEY COLLINS on 03/21/23 0940 Last Action: Reviewed Gluc/Edgar-MSM#1/Vit C/Aki/Bor (Ipqefok-Mwnvn-LOK Complex Cplt) 1 Each Tablet, 1 TAB PO DAILY, (Reported) Entered as Reported by: TRACEY COLLINS on 09/30/19 1311 Last Action: Reviewed Ondansetron (Ondansetron Odt) 4 Mg Tab.rapdis, 4 MG SL Q4H PRN for NAUSEA/VOMITING Prescribed by: FIGUEROA ARCHER on 03/21/23 09 Pantoprazole Sodium (Protonix) 40 Mg Tablet., 40 MG PO DAILY Prescribed by: FIGUEROA ARCHER on 03/21/23958 Ranolazine (Ranolazine ER) 1,000 Mg Tab.er.12h, 1,000 MG PO BID, (Reported) Entered as Reported by: TRACEY COLLINS on 03/21/2340 Last Action: Reviewed Turmeric/Turmeric Root Extract (Turmeric 450-50 mg Capsule) 1 Each Capsule, 1 CAP PO DAILY, (Reported) Entered as Reported by: TRACEY COLLINS on 09/30/191310 Last Action: Reviewed Discontinued Medications Acetaminophen (Acetaminophen) 500 Mg Tablet, 500 MG PO Q6H PRN for PAIN-MILD (1- 4), (Reported) Discontinued Reason: No Longer Taking Entered as Reported by: TRACEY COLLINS on 09/30/191310 Last Action: Discontinued Aspirin (Aspirin) 81 Mg Tab.chew, 81 MG PO DAILY Discontinued Reason: No Longer Taking Prescribed by: BEN KHAN on 10/02/19923 Last Action: Discontinued Atorvastatin Calcium (Lipitor) 40 Mg Tablet, 40 MG PO HS Discontinued Reason: No Longer Taking Prescribed by: BEN KHAN on 10/02/19923 Last Action: Discontinued Clopidogrel Bisulfate (Clopidogrel) 75 Mg Tablet, 75 MG PO DAILY Discontinued Reason: No Longer Taking Prescribed by: BNE KHAN on 10/02/19923 Last Action: Discontinued Metoprolol Succinate (Metoprolol Succinate) 25 Mg Tab.er.24h, 25 MG PO DAILY Discontinued Reason: No Longer Taking Prescribed by: BEN KHAN on 10/02/19923 Last Action: Discontinued [place]-3/Dha/Epa/Fish Oil (Fish Oil 1,000 mg Softgel) 1 Each Capsule, 1 CAP PO DAILY, (Reported) Discontinued Reason: No Longer Taking Entered as Reported by: TRACEY COLLINS on 09/30/191310 Last Action: Discontinued Ranolazine (Ranexa) 1,000 Mg Tab.er.12h, 1,000 MG PO BID, (Reported) Discontinued Reason: No Longer Taking Entered as Reported by: CHARITY BURTON on 07/29/15 1029 Last Action: Discontinued Past Ufegswy-Muomqy-Kjbcgv Hx Patient Social History Smoking Status: Current Everyday Smoker Cigarettes Per Day: 8 Type Used: Cigarettes Recent Hopitalizations: Yes (LAST PM) Alcohol Use?: Yes Have you traveled recently?: No Immunizations Up To Date Tetanus Booster (TDap): Less than 5yrs PED Vaccines UTD: Yes Seasonal Allergies Seasonal Allergies: No Surgeries History of Surgeries: Yes Surgeries: Coronary Stent Respiratory History of Respiratory Disorde: Yes Respiratory Disorders: Pneumonia, COPD Cardiovascular History of Cardiac Disorders: Yes (CHF) Cardiac Disorders: Coronary Artery Disease, Heart Attack, High Cholesterol, Hypertension Neurological History of Neurological Disord: No Reproductive System Hx Reproductive Disorders: No Sexually Transmitted Disease: No HIV/AIDS: No Gastrointestinal History of Gastrointestinal Di: Yes Gastrointestinal Disorders: Chronic Constipation Musculoskeletal History of Musculoskeletal Dis: Yes (left meniscus tear, cervical spine disease) Musculoskeletal Disorders: Degenerate Disk Disease, Chronic Back Pain Endocrine History of Endocrine Disorders: No HEENT History of HEENT Disorders: No Cancer History of Cancer: No Psychosocial History of Psychiatric Problem: Yes Behavioral Health Disorders: Sleep Difficulties, Anxiety, Depression Integumentary History of Skin or Integumenta: No Blood Transfusions History of Blood Disorders: No Adverse Reaction to a Blood Tr: No Family Medical History Significant Family History: Heart Disease (Father- Heart attack), Cancer (Sister-Colon Cancer) Family Medial History: Arthritis 19 MOTHER FH: CAD (coronary artery disease) 19 FATHER FH: colon cancer G8 SISTER FH: stomach cancer 19 FATHER Review of Systems-General Constitutional: chills; No dizziness, No malaise, No weight gain, No weight loss EENTM: No mouth swelling, No epistaxis Respiratory: No cough, No dyspnea on exertion Cardiovascular: No chest pain, No edema, No palpitations Gastrointestinal: abdominal pain (RUQ, RLQ, LLQ); No jaundice; nausea; No vomiting Genitourinary: No dysuria, No frequency Musculoskeletal: No joint swelling, No muscle pain Skin: No lesions, No lumps Psychiatric/Neurological: Denies Headache, Denies Numbness Physical Exam-General Problems Physical Exam Vital Signs Vital Signs - First Documented 03/20/23 21:18 Temp 36.7 Pulse 68 Resp 16 B/P (MAP) 144/90 (108) Pulse Ox 97 O2 Delivery Room Air Capillary Refill : Less Than 3 Seconds General Appearance: WD/WN, no apparent distress Eyes: Bilateral Eye PERRL, Bilateral Eye EOMI HEENT: No scleral icterus (R), No scleral icterus (L) Neck: full range of motion Respiratory: lungs clear, normal breath sounds; No no respiratory distress Cardiovascular: regular rate, rhythm, no murmur Peripheral Pulses: 3+ Radial Pulses (R), 3+ Radial Pulses (L) Gastrointestinal: normal bowel sounds, soft; No distended; tenderness (RUQ, RLQ, LLQ to palpation) Rectal: No deferred Back: no CVA tenderness Extremities: no pedal edema Neurologic/Psychiatric: oriented x 3 Skin: normal color, warm/dry Data Review Labs Laboratory Tests 03/20/23 21:20: White Blood Count 9.8, Red Blood Count 4.54, Hemoglobin 13.9, Hematocrit 41, Mean Corpuscular Volume 89, Mean Corpuscular Hemoglobin 31, Mean Corpuscular Hemoglobin Concent 34, Red Cell Distribution Width 12.6, Platelet Count 198, Mean Platelet Volume 10.2, Immature Granulocyte % (Auto) 0, Neutrophils (%) (Auto) 69, Lymphocytes (%) (Auto) 22, Monocytes (%) (Auto) 8, Eosinophils (%) (Auto) 1, Basophils (%) (Auto) 0, Neutrophils # (Auto) 6.7, Lymphocytes # (Auto) 2.1, Monocytes # (Auto) 0.8, Eosinophils # (Auto) 0.1, Basophils # (Auto) 0.0, Immature Granulocyte # (Auto) 0.0, Sodium Level 137, Potassium Level 4.0, Chloride Level 107, Carbon Dioxide Level 20L, Anion Gap 10, Blood Urea Nitrogen 18, Creatinine 1.25, Estimat Glomerular Filtration Rate 66, BUN/Creatinine Ratio 14, Glucose Level 215H, Calcium Level 8.7, Corrected Calcium 8.9, Total Miguel irubin 0.8, Aspartate Amino Transf (AST/SGOT) 17, Alanine Aminotransferase (ALT/SGPT) 23, Alkaline Phosphatase 64, Total Protein 6.4, Albumin 3.8, Lipase 37 03/20/23 21:35: Troponin I < 0.028 03/20/23 22:19: Urine Color YELLOW, Urine Clarity SL CLOUDY, Urine pH 6.0, Urine Specific [place] >=1.030, Urine Protein NEGATIVE, Urine Glucose (UA) 3+H, Urine Ketones NEGATIVE, Urine Nitrite NEGATIVE, Urine Bilirubin NEGATIVE, Urine Urobilinogen 1.0, Urine Leukocyte Esterase NEGATIVE, Urine RBC (Auto) TRACE-IH, Urine RBC 0- 2, Urine WBC RARE, Urine Squamous Epithelial Cells 2-5, Urine Crystals PRESENTH, Urine Amorphous Sediment RARE VIRAL URATESH, Urine Bacteria TRACE, Urine Casts NONE, Urine Mucus SMALLH, Urine Culture Indicated NO 03/20/23 22:49: C-Reactive Protein High Sensitivity 0.26 03/21/23 05:17: White Blood Count 14.4H, Red Blood Count 4.50, Hemoglobin 14.4, Hematocrit 40, Mean Corpuscular Volume 90, Mean Corpuscular Hemoglobin 32, Mean Corpuscular Hemoglobin Concent 36, Red Cell Distribution Width 12.7, Platelet Count 233, Mean Platelet Volume 11.0, Immature Granulocyte % (Auto) 0, Neutrophils (%) (Auto) 77H, Lymphocytes (%) (Auto) 14, Monocytes (%) (Auto) 8, Eosinophils (%) (Auto) 0, Basophils (%) (Auto) 0, Neutrophils # (Auto) 11.1H, Lymphocytes # (Auto) 2.0, Monocytes # (Auto) 1.2H, Eosinophils # (Auto) 0.0, Basophils # (Auto) 0.0, Immature Granulocyte # (Auto) 0.1, Neutrophils % (Manual) 80, Lymphocytes % (Manual) 16, Monocytes % (Manual) 4, Platelet Estimate adequate, Blood Morphology Comment Normal, Sodium Level 136, Potassium Level 4.3, Chloride Level 105, Carbon Dioxide Level 22, Anion Gap 9, Blood Urea Nitrogen 14, Creatinine 1.01, Estimat Glomerular Filtration Rate 85, BUN/Creatinine Ratio 14, Glucose Level 131H, Calcium Level 8.7, Corrected Calcium 8.9, Total Bilirubin 0.9, Aspartate Amino Transf (AST/SGOT) 20, Alanine Aminotransferase (ALT/SGPT) 25, Alkaline Phosphatase 62, Total Protein 6.4, Albumin 3.8, Lipase 23 Assessment/Plan Assessment/Plan Admission Diagonsis Assessment/Plan RUQ pain Cholelithiasis US to be completed this morning. Evidence of cholelithasis on CT scan. RASHID TALYOR DO 03/21/23 1026: History of Present Illness History of Present Illness Time Seen by Provider: 09:24 History of Present Illness Surgery asked to consult regarding RUQ pain. HPI per ED: Patient is a 58-year-old male who presents the ED with right-sided abdominal pain. Patient states pain started around 6 PM this evening. Pain started in his right upper quadrant. Pain is radiated to the right lower quadrant and left sided abdomen. Described as more of a throbbing pain. Patient started having chills with sweating. Patient contacted EMS. Pain does not radiate to the back. Nausea without vomiting or diarrhea. No history of previous abdominal surgery. Normal urination. History of coronary artery disease. Denies of any specific chest pain, shortness of breath or cough. Patient Was given 50 of fentanyl by EMS before arrival. Rates pain 8 out of 10. Patient denies headache, visual changes, sore throat, chest pain, cough, shortness of breaht, ear pain When I saw pt this am he states he is much better and his main focus is getting out so he can put down payment on house; otherwise he is homeless. He is also hungry. Allergies and Home Medications Allergies Coded Allergies: propoxyphene (Verified Allergy, Severe, NAUSEA, 03/31/14) Pt has nausea and disorientation when taking Patient Home Medication List Home Medication List Reviewed: Yes Aspirin (Aspirin EC) 81 Mg Tablet., 81 MG PO DAILY, (Reported) Entered as Reported by: TRACEY COLLINS on 03/21/23939 Last Action: Reviewed Atorvastatin Calcium (Atorvastatin Calcium) 80 Mg Tablet, 80 MG PO HS, (Reported) Entered as Reported by: TRACEY COLLINS on 03/21/23939 Last Action: Reviewed Gluc/Edgar-MSM#1/Vit C/Aki/Bor (Mhunmhe-Tgxin-XFM Complex Cplt) 1 Each Tablet, 1 TAB PO DAILY, (Reported) Entered as Reported by: TRACEY COLLINS on 09/30/19 1311 Last Action: Reviewed Ondansetron (Ondansetron Odt) 4 Mg Tab.rapdis, 4 MG SL Q4H PRN for NAUSEA/VOMITING Prescribed by: FIGUEROA ARCHER on 03/21/23958 Pantoprazole Sodium (Protonix) 40 Mg Tablet., 40 MG PO DAILY Prescribed by: FIGUEROA ARCHER on 03/21/23958 Ranolazine (Ranolazine ER) 1,000 Mg Tab.er.12h, 1,000 MG PO BID, (Reported) Entered as Reported by: TRACEY COLLINS on 03/21/23939 Last Action: Reviewed Turmeric/Turmeric Root Extract (Turmeric 450-50 mg Capsule) 1 Each Capsule, 1 CAP PO DAILY, (Reported) Entered as Reported by: TRACEY COLLINS on 09/30/191310 Last Action: Reviewed Discontinued Medications Acetaminophen (Acetaminophen) 500 Mg Tablet, 500 MG PO Q6H PRN for PAIN-MILD (1- 4), (Reported) Discontinued Reason: No Longer Taking Entered as Reported by: TRACEY COLLINS on 09/30/191310 Last Action: Discontinued Aspirin (Aspirin) 81 Mg Tab.chew, 81 MG PO DAILY Discontinued Reason: No Longer Taking Prescribed by: BEN KHAN on 10/02/19923 Last Action: Discontinued Atorvastatin Calcium (Lipitor) 40 Mg Tablet, 40 MG PO HS Discontinued Reason: No Longer Taking Prescribed by: BEN KHAN on 10/02/19923 Last Action: Discontinued Clopidogrel Bisulfate (Clopidogrel) 75 Mg Tablet, 75 MG PO DAILY Discontinued Reason: No Longer Taking Prescribed by: BEN KHAN on 10/02/19923 Last Action: Discontinued Metoprolol Succinate (Metoprolol Succinate) 25 Mg Tab.er.24h, 25 MG PO DAILY Discontinued Reason: No Longer Taking Prescribed by: BEN KHAN on 10/02/19923 Last Action: Discontinued [place]-3/Dha/Epa/Fish Oil (Fish Oil 1,000 mg Softgel) 1 Each Capsule, 1 CAP PO DAILY, (Reported) Discontinued Reason: No Longer Taking Entered as Reported by: TRACEY COLLINS on 09/30/191310 Last Action: Discontinued Ranolazine (Ranexa) 1,000 Mg Tab.er.12h, 1,000 MG PO BID, (Reported) Discontinued Reason: No Longer Taking Entered as Reported by: CHARITY BURTON on 07/29/15 1029 Last Action: Discontinued Past Yodcpqy-Aesbdy-Tkkhcz Hx Patient Social History Smoking Status: Current Everyday Smoker Alcohol Use?: Yes Immunizations Up To Date Tetanus Booster (TDap): Less than 5yrs Surgeries History of Surgeries: Yes Surgeries: Coronary Stent Respiratory History of Respiratory Disorde: Yes Respiratory Disorders: COPD Cardiovascular History of Cardiac Disorders: Yes Cardiac Disorders: Coronary Artery Disease, Heart Attack, High Cholesterol, Hypertension Neurological History of Neurological Disord: No Reproductive System Hx Reproductive Disorders: No Sexually Transmitted Disease: No HIV/AIDS: No Genitourinary History of Genitourinary Disor: No Gastrointestinal History of Gastrointestinal Di: Yes Gastrointestinal Disorders: Chronic Constipation Musculoskeletal History of Musculoskeletal Dis: Yes Musculoskeletal Disorders: Degenerate Disk Disease Endocrine History of Endocrine Disorders: No HEENT History of HEENT Disorders: No Cancer History of Cancer: No Psychosocial History of Psychiatric Problem: Yes Behavioral Health Disorders: Sleep Difficulties, Anxiety, Depression Family Medical History Significant Family History: Heart Disease (Father- Heart attack), Cancer (Sister-Colon Cancer) Family Medial History: Arthritis 19 MOTHER FH: CAD (coronary artery disease) 19 FATHER FH: colon cancer G8 SISTER FH: stomach cancer 19 FATHER Review of Systems-General Constitutional: chills; No dizziness, No malaise, No weight gain, No weight loss EENTM: No mouth swelling, No epistaxis Respiratory: No cough, No dyspnea on exertion Cardiovascular: No chest pain, No edema; Hx of Intervention; No palpitations Gastrointestinal: abdominal pain (RUQ, RLQ, LLQ); No jaundice; nausea, vomiting Genitourinary: No dysuria, No frequency Musculoskeletal: back pain; No joint swelling, No muscle pain Skin: No lesions, No lumps Psychiatric/Neurological: Anxiety, Depressed; Denies Headache, Denies Numbness Physical Exam-General Problems Physical Exam General Appearance: WD/WN, no apparent distress, obese Eyes: Bilateral Eye PERRL, Bilateral Eye EOMI HEENT: pharynx normal; No scleral icterus (R), No scleral icterus (L) Neck: non-tender, supple Respiratory: lungs clear, normal breath sounds, no respiratory distress, no accessory muscle use Cardiovascular: regular rate, rhythm, no murmur Peripheral Pulses: 3+ Radial Pulses (R), 3+ Radial Pulses (L) Gastrointestinal: normal bowel sounds, soft, no organomegaly; No distended; tenderness (RUQ, RLQ, LLQ to palpation), hernia (Umbilical and Left inguinal) Rectal: deferred Back: no CVA tenderness, no vertebral tenderness Neurologic/Psychiatric: branch operations specialist II-XII nml as tested, alert, normal mood/affect, oriented x 3 Skin: normal color, warm/dry Lymphatic: no adenopathy (neck, axilla or groin) Data Review Radiology Draft Date of Exam:03/21/23 US GALLBLADDER [id number] PROCEDURE: US Gallbladder. TECHNIQUE: Multiple real-time grayscale images were obtained over the right upper quadrant in various projections. INDICATION: Intractable nausea and vomiting. The liver is normal in size at 15 cm. Liver does show diffuse increased echogenicity consistent with hepatic steatosis. No liver mass is identified. Portal vein is patent and shows normal direction of flow. Gallbladder is thick-walled measuring up to 5 mm. There are multiple small stones present. Extrahepatic bile duct is slightly prominent at 7 to 8 mm. No common duct stones are visualized. Pancreas and aorta were obscured. IVC is patent. Right kidney is without calculi or hydronephrosis. There is no ascites. IMPRESSION: 1. Hepatic steatosis. 2. Cholelithiasis and thick-walled gallbladder concerning for acute cholecystitis. The extrahepatic bile duct is slightly prominent at 7 to 8 mm but no common duct stones are visualized. Dictated on workstation # [id number] Dict: 03/21/2342 Trans: 03/21/23 0946 [facility] [id number] Interpreted by: PABLO RAMIREZ MD Assessment/Plan Assessment/Plan Assessment/Plan Cholelithiasis with probably Cholecystitis that could be Acute CAD Incarcerated Umbilical hernia Left inguinal hernia I reviewed the CT and US myself and then went to talk to Dr. Ramirez about both of them. I also spoke with the ED provider last night. Today pt is totally focused on getting out to take care of his affairs; which I totally understand. I talked to him about the fact that his WBC is up, the gallbladder wall is thickened and his CBD is enlarged. He feels better so that is probably a good sign. I will not keep him in the hospital if he needs to leave. I told him the WBC could be up because of the vomiting last night or because his gallbladder is worse today; even though he feels better. He stated he wants the gallbladder out "sooner rather than later", but that he cannot do it today. We talked about the surgery and signs or symptoms of this getting worse. He understood and stated he would be back right away if he gets worse; increased pain, N/V, fever etc. All questions answered to his satisfaction. Hernias are not bothering him and therefore do not need to be fixed until they do. Supervisory-Addendum Brief Verification & Attestation Participated in pt care: history, MDM, physical Personally performed: exam, history, MDM, supervision of care Care discussed with: Medical Student Procedures: n/a Verification and Attestation of Medical Student E/M Service A medical student performed and documented this service. I then reviewed and verified all information documented by the medical student and made modifications to such information, when appropriate. I personally performed a physical exam, medical decision making and then discussed any differences between the notes and made revisions as necessary to create one note. Rashid Taylor , 03/21/23 , 10:32 WILLOW HELTON March 21, 2023 08:24 RASHID TAYLOR DO March 21, 2023 10:26
[2023-03-21] MEDS ORDERED: PANTOPRAZOLE 40 MG (PROTONIX) VIAL IV SCH (09:00)
--- NOTE | 2023-03-21 09:31 | Short Stay Summary-Hospitalist ---
History of Present Illness HPI/Chief Complaint CC: Biliary colic HPI: This is a 58yoWM clinic patient of [facility] who has a h/o HTN CAD who presented to the ER with abdominal pain with severe N/V and found to have gallbladder disease. Dr Rockwell has assessed him and will perform choly as outpatient due to patient unable to have surgery today. Source: patient Exam Limitations: no limitations Date Seen 03/21/23 Time Seen by a Provider: 09:30 Attending Physician [place] PCP Admitting Physician: Fay Tiwari DO Attending Physician: Fay Tiwari DO Referring Physician Date of Admission March 21, 2023 at 00:53 Home Medications & Allergies Home Medications Reviewed patient Home Medication Reconciliation performed by pharmacy medication reconciliations emissions testing technician and/or nursing. Patients Allergies have been reviewed. Allergies Allergies Coded Allergies propoxyphene (Verified Allergy, Severe, NAUSEA, 03/31/14) Pt has nausea and disorientation when taking Past Dcxsood-Tspxfa-Tsznum Hx Patient Social History Marrital Status: single Employed/Student: unemployed Tobacco Use?: Yes Tobacco type used: Cigarettes Smoking Status: Current Everyday Smoker Smokeless Tobacco Frequency: Never a User Use of E-Cig and/or Vaping dev: No Use of E-Cig and/or Vaping Alexsander: Never a User Substance use?: No Alcohol Use?: Yes Alcohol Frequency: Rarely Pt feels they are or have been: No Immunizations Up To Date First/Initial COVID19 Vaccinat: DENIES Hepatitis A: No Hepatitis B: No PED Vaccines UTD: Yes Seasonal Allergies Seasonal Allergies: No Current Status Advance Directives: No Communicates: Verbally Primary Language: Telugu Preferred Spoken Language: Telugu Is interpretation needed?: No Implanted or Applied Medical D: Stents Past Medical History Surgeries: Coronary Stent Pneumonia, COPD Coronary Artery Disease, Heart Attack, High Cholesterol, Hypertension Sexually Transmitted Disease: No HIV/AIDS: No Chronic Constipation Degenerate Disk Disease, Chronic Back Pain Sleep Difficulties, Anxiety, Depression Blood Disorders: No Adverse Reaction/Blood Tranf: No Family Medical History Arthritis 19 MOTHER FH: CAD (coronary artery disease) 19 FATHER FH: colon cancer G8 SISTER FH: stomach cancer 19 FATHER Heart Disease (Father- Heart attack), Cancer (Sister-Colon Cancer) Review of Systems Constitutional: see HPI, malaise, weakness Gastrointestinal: nausea, vomiting Physical Exam Physical Exam Vital Signs Vital Signs - First Documented 03/20/23 21:18 Temp 36.7 Pulse 68 Resp 16 B/P (MAP) 144/90 (108) Pulse Ox 97 O2 Delivery Room Air Capillary Refill : Less Than 3 Seconds Height, Weight, BMI Height: 5'7.00" Weight: 200lbs. 9.0oz. 90.217154mo; 34.51 BMI Method:Estimated General Appearance: No Apparent Distress, WD/WN, Chronically ill, Obese Eyes: Bilateral Eye PERRL, Bilateral Eye EOMI HEENT: PERRL/EOMI, Normal ENT Inspection, Pharynx Normal Neck: Full Range of Motion, Normal Inspection, Non Tender, Supple, Carotid Bruit Respiratory: Chest Non Tender, Lungs Clear, Normal Breath Sounds, No Accessory Muscle Use, No Respiratory Distress Cardiovascular: Regular Rate, Rhythm, No Edema, No Gallop, No JVD, No Murmur, Normal Peripheral Pulses Gastrointestinal: Normal Bowel Sounds, No Organomegaly, No Pulsatile Mass, Non Tender, Soft Back: Normal Inspection, No CVA Tenderness, No Vertebral Tenderness Extremity: Normal Capillary Refill, Normal Inspection, Normal Range of Motion, Non Tender, No Calf Tenderness, No Pedal Edema Neurologic/Psychiatric: Alert, Oriented x3, No Motor/Sensory Deficits, Normal Mood/Affect Skin: Normal Color, Warm/Dry Lymphatic: No Adenopathy Results Results/Procedures Labs Laboratory Tests 03/20/23 21:20 03/21/23 05:17 Patient resulted labs reviewed. Short Stay Diagnosis Discharge Diagnosis-Short Stay Admission Diagnosis Biliary colic N/V Final Discharge Diagnosis Biliary colic N/V CAD HTN HLP Smoker Conclusion Plan DC home Choly as outpatient FAY TIWARI DO March 21, 2023 09:31
[2023-03-21] MEDS ORDERED: RANO10005 PO (09:40)
[2023-03-21] MEDS ORDERED: ATOR80TA76 PO (09:40)
[2023-03-21] MEDS ORDERED: ASPI-1238 PO (09:40)
--- NOTE | 2023-03-21 09:47 | Diagnostic Imaging Report ---
PROCEDURE: US Gallbladder. TECHNIQUE: Multiple real-time grayscale images were obtained over the right upper quadrant in various projections. INDICATION: Intractable nausea and vomiting. The liver is normal in size at 15 cm. Liver does show diffuse increased echogenicity consistent with hepatic steatosis. No liver mass is identified. Portal vein is patent and shows normal direction of flow. Gallbladder is thick-walled measuring up to 5 mm. There are multiple small stones present. Extrahepatic bile duct is slightly prominent at 7 to 8 mm. No common duct stones are visualized. Pancreas and aorta were obscured. IVC is patent. Right kidney is without calculi or hydronephrosis. There is no ascites. IMPRESSION: 1. Hepatic steatosis. 2. Cholelithiasis and thick-walled gallbladder concerning for acute cholecystitis. The extrahepatic bile duct is slightly prominent at 7 to 8 mm but no common duct stones are visualized. Dictated by: Dictated on workstation # [id number]
[2023-03-21] MEDS ORDERED: ONDA4TAB11 SL (09:59)
[2023-03-21] MEDS ORDERED: PANT40TA2 PO (09:59)
[2023-03-21 11:12] VITALS: BP 115/67
[2023-03-21 16:15] VITALS: BP 115/67
== END 2023-03-21 16:15 | disposition home or self-care (01) ==
LOC: EDUNIT# 21:16 → ER 21:17 → 4TH 03-21 00:53
PROVIDERS: ADMIT Internal Medicine; ATTEND Internal Medicine
DX: K80.50 Calculus of bile duct without cholangitis or cholecystitis without obstruction (principal); I25.10 Atherosclerotic heart disease of native coronary artery without angina pectoris; I10 Essential (primary) hypertension; I95.1 Orthostatic hypotension; K42.0 Umbilical hernia with obstruction, without gangrene; K40.90 Unilateral inguinal hernia, without obstruction or gangrene, not specified as recurrent; E78.5 Hyperlipidemia, unspecified; E66.9 Obesity, unspecified; F17.210 Nicotine dependence, cigarettes, uncomplicated; Z68.34 Body mass index [BMI] 34.0-34.9, adult; Z28.310 Unvaccinated for COVID-19
CPT/HCPCS: 74177; 76705; 80053 ×2; 81000; 83690 ×2; 84484; 85007; 85025; 85027; 86141; 96376; 99284; G0378; 36415